=== PATIENT | female | born 1995 | race Caucasian/White ===

== ENCOUNTER → 2020-08-06 | Outpatient (CLI) | payer OTHER, SELFPAY ==
[2020-08-06 09:28] VITALS: BMI 32.9
[2020-08-06 18:39] LABS: Amphetamine Urine VISTA NEGATIVE (<1000 ng/mL); Barbiturate Urine VISTA NEGATIVE (< 200 ng/mL); Benzodiazepine Urine VISTA NEGATIVE (< 200 ng/mL); Cocaine Urine VISTA NEGATIVE (< 300 ng/mL); Ecstacy Urine VISTA NEGATIVE (< 500 ng/mL); Methadone Urine VISTA NEGATIVE (< 300 ng/mL); PCP Urine VISTA NEGATIVE (< 25 ng/mL); THC Urine VISTA NEGATIVE (< 50 ng/mL); Vista UDS pH Range 5
[2020-08-08 20:08] LABS: Chlamydia By Nucleic Acid AMP Negative (Negative)
[2020-08-08 21:01] LABS: Gonococcus By Nucleic Acid AMP Negative (Negative)
== END | disposition home or self-care (01) ==
PROVIDERS: PCP Nurse Practitioner Primary Care; Referring Provider Obstetrics & Gynecology; Visit Provider Obstetrics & Gynecology
DX: Z34.90 Encounter for supervision of normal pregnancy, unspecified, unspecified trimester (principal); Z12.4 Encounter for screening for malignant neoplasm of cervix
CPT/HCPCS: 80307; 87086; 87088; 87491; 87591

== ENCOUNTER → 2020-08-17 13:21 | Outpatient (CLI) | payer OTHER, SELFPAY ==
[2020-08-06 09:28] VITALS: BMI 32.9
[2020-08-17 14:52] LABS: Absolute Lymphocyte Count 2.85 X10^3/uL (0.83-4.51); Absolute Neutrophil Count 7.4 X10^3/uL (2.0-7.7); Basophil# 0.03 X10^3/uL; Basophil% 0.3 % (0-1); Eosinophils% 0.9 % (0-5); Hematocrit 40.4 % (37-47); Hemoglobin 13.7 g/dL (12.0-15.0); Lymphocyte # 2.85 X10^3/ul (0.83-4.51); Mean Corp Hgb Conc 33.9 g/dL (32-36); Mean Corpuscular Hgb 28.9 pg (27.0-32.0); Mean Corpuscular Volume 85.2 fL (81-99); Mean Platelet Vol. 10.4 fl (6.2-12.0); Monocyte# 0.51 X10^3/uL; Monocyte% 4.7 % (0-10); NRBC Flagged by Analyzer 0 % (0-5); Neutrophil # 7.42 X10^3/uL (2.7-7.7); Neutrophil % 67.7 % (47-70); Platelet Count 261 K/mm3 (150-450); RBC Distribution Width CV 11.9 % (11.6-14.6); RBC Distribution Width SD 36.7 fl (35.1-43.9); Red Blood Count 4.74 M/mm3 (4.2-5.4)
[2020-08-17 15:17] LABS: Glucose Challenge Gest 1H 50g 128 mg/dL (70-140)
[2020-08-21 10:27] LABS: HIV - WCH Non-Reactive (Nonreactive); Hepatitis B Surface Antigen Non-Reactive (Nonreactive); Hepatitis C Antibody Non-Reactive (Nonreactive); Rubella IgG Reactive (Nonreactive); Syphilis Antibodies Non-reactive
== END ==
PROVIDERS: Obstetrics & Gynecology; PCP Nurse Practitioner Primary Care; Referring Provider Obstetrics & Gynecology; Visit Provider Obstetrics & Gynecology
DX: Z34.90 Encounter for supervision of normal pregnancy, unspecified, unspecified trimester (principal)
CPT/HCPCS: 36415; 82950; 85025; 86703; 86762; 86780; 86803; 86850; 86900; 86901; 87340

== ENCOUNTER → 2020-12-11 09:14 | Outpatient (CLI) | payer OTHER, SELFPAY ==
[2020-12-11 09:37] LABS: Absolute Lymphocyte Count 2.11 X10^3/uL (0.83-4.51); Absolute Neutrophil Count 9.7 X10^3/uL (2.0-7.7); Basophil# 0.05 X10^3/uL; Basophil% 0.4 % (0-1); Eosinophil# 0.06 X10^3/uL; Eosinophils% 0.5 % (0-5); Hematocrit 37.3 % (37-47); Hemoglobin 12.5 g/dL (12.0-15.0); Lymphocyte # 2.11 X10^3/ul (0.83-4.51); Lymphocyte % 16.6 % (19-41); Mean Corp Hgb Conc 33.5 g/dL (32-36); Mean Corpuscular Hgb 29.4 pg (27.0-32.0); Mean Corpuscular Volume 87.8 fL (81-99); Mean Platelet Vol. 10.3 fl (6.2-12.0); Monocyte# 0.58 X10^3/uL; Monocyte% 4.6 % (0-10); NRBC Flagged by Analyzer 0 % (0-5); Neutrophil # 9.71 X10^3/uL (2.7-7.7); Neutrophil % 76.1 % (47-70); Platelet Count 223 K/mm3 (150-450); RBC Distribution Width CV 13.1 % (11.6-14.6); RBC Distribution Width SD 41.1 fl (35.1-43.9); Red Blood Count 4.25 M/mm3 (4.2-5.4); White Blood Count 12.7 K/mm3 (4.4-11.0)
[2020-12-11 09:54] LABS: Glucose Challenge Gest 1H 50g 154 mg/dL (70-140)
== END ==
PROVIDERS: PCP Nurse Practitioner Primary Care; Referring Provider Obstetrics & Gynecology; Visit Provider Obstetrics & Gynecology
DX: O10.919 Unspecified pre-existing hypertension complicating pregnancy, unspecified trimester (principal); Z13.1 Encounter for screening for diabetes mellitus; Z3A.00 Weeks of gestation of pregnancy not specified
CPT/HCPCS: 36415; 82950; 85025

== ENCOUNTER → 2020-12-20 06:40 | Outpatient (CLI) | payer OTHER, SELFPAY ==
[2020-12-20 07:41] LABS: Glucose GTT-Gestation. Fasting 95 mg/dL (<105)
[2020-12-20 08:36] LABS: Glucose GTT-Gestational 1 Hr 197 mg/dL (<190)
[2020-12-20 09:46] LABS: Glucose GTT-Gestational 2 Hr 167 mg/dL (<165)
[2020-12-20 10:46] LABS: Glucose GTT-Gestational 3 Hr 65 L (<145)
== END ==
PROVIDERS: PCP Nurse Practitioner Primary Care; Referring Provider Nurse Practitioner Women's Health; Visit Provider Nurse Practitioner Women's Health
DX: Z13.1 Encounter for screening for diabetes mellitus (principal)
CPT/HCPCS: 36415; 82951; 82952

== ENCOUNTER 2021-01-14 10:00 | Outpatient (RCR) | payer OTHER, SELFPAY | END 2021-01-20 23:59 | LOC: DC 10:00 | PROVIDERS: PCP Nurse Practitioner Primary Care; Visit Provider Nurse Practitioner Women's Health | DX: O24.410 Gestational diabetes mellitus in pregnancy, diet controlled (principal); Z3A.00 Weeks of gestation of pregnancy not specified | CPT/HCPCS: 97802 ==

== ENCOUNTER 2021-01-20 22:05 | Outpatient (CLI) | payer OTHER, SELFPAY ==
[2021-01-20 22:12] VITALS: BMI 36.1
[2021-01-20 22:18] VITALS: PULSE 79; O2SAT 97
[2021-01-20 22:20] VITALS: BP 155/89; PULSE 90; TEMP 36.8; O2SAT 97
[2021-01-20 23:01] VITALS: BP 135/88; PULSE 82
--- NOTE | 2021-01-23 05:54 | OB.TRI.PN ---
Progress Notes Date of Service: 01/20/21 Progress Note: Patient presents for triage evaluation secondary to dec fm FHT: 140 Moderate variability reactive no decelerations category I tracing [place]: no reuglar Contractions Assessment and plan: Reactive NST, reassuring maternal and status patient discharged to home to follow-up as scheduled. See problem list details for additional plan information. Charges/Coding Procedures Urinary/Genital 52xxx-59xxx: 84101-37 non-stress test Interp Assessment & Plan (1) Decreased movements in third trimester: COMMENT: reactive nst triage 01/20
== END 2021-01-20 23:17 | disposition home or self-care (01) ==
LOC: WPOUT 22:06 → WP 22:07
PROVIDERS: PCP Nurse Practitioner Primary Care; Visit Provider Obstetrics & Gynecology
DX: O36.8130 Decreased fetal movements, third trimester, not applicable or unspecified (principal); Z3A.00 Weeks of gestation of pregnancy not specified
CPT/HCPCS: 59025; 59050; 99218; G0378

== ENCOUNTER → 2021-02-11 12:25 | Outpatient (CLI) | payer OTHER, SELFPAY ==
--- NOTE | 2021-02-11 12:34 | US_ITS ---
INDICATION: growth EXAMINATION: Ultrasound US OB Follow-Up TECHNIQUE: Transabdominal pelvic ultrasound was performed. COMPARISON: None. LMP: Unknown. Beta-hCG: Unknown. Provided EGA: None. FINDINGS: INTRAUTERINE GESTATION(s): Single. ESTIMATED GESTATIONAL AGE: 34 weeks 3 days ESTIMATED DUE DATE (ESAU): 03/22/2021 HEART MOTION is 127 bpm. AMNIOTIC FLUID INDEX (RENNY): 16.98 cm ESTIMATED WEIGHT: 2774 +/- 4 116 g Percentile 52.59%. BIOPHYSICAL PROFILE (BPP): Not assessed. BPD 8.43 cm corresponds to 33 weeks 6 days +/- 21 days HEAD CIRCUMFERENCE 30.7 cm corresponds to 34 weeks 1 day +/- 20 days ABDOMINAL CIRCUMFERENCE 32.6 cm corresponds to 36 weeks 3 days +/- 21 days FEMUR LENGTH 6.8 cm corresponds to 35 weeks 0 days +/- 20 days PRESENTATION: Cephalic PLACENTA: Fundal. There is no placenta previa or abruption. CERVIX: The cervix is closed. Cervical length 3.9 cm. MATERNAL OVARIES: Not visualized but mass is not identified. FREE FLUID: None. US/OB Limited With Biometrics IMPRESSION: Single live intrauterine gestation in cephalic presentation with composite gestational age 34 weeks 3 days compares to clinical dates by last menstrual period 35 weeks 5 days. Estimated weight 6 lbs. 2 oz. corresponding to 53 percentile. Electronically Signed: Jabier Gonzalez MD at 17:05 EST Tel , Service support ,
== END ==
PROVIDERS: PCP Nurse Practitioner Primary Care; Referring Provider Obstetrics & Gynecology; Visit Provider Obstetrics & Gynecology
DX: O24.410 Gestational diabetes mellitus in pregnancy, diet controlled (principal); Z3A.35 35 weeks gestation of pregnancy
CPT/HCPCS: 76816

== ENCOUNTER → 2021-02-15 | Outpatient (CLI) | payer OTHER, SELFPAY | END | disposition home or self-care (01) | LOC: LABSPEC 12:59 | PROVIDERS: PCP Nurse Practitioner Primary Care; Visit Provider Obstetrics & Gynecology | DX: Z34.93 Encounter for supervision of normal pregnancy, unspecified, third trimester (principal); Z3A.36 36 weeks gestation of pregnancy | CPT/HCPCS: 87081 ==

== ENCOUNTER 2021-02-23 18:05 | Outpatient (CLI) | payer OTHER, SELFPAY ==
[2021-02-23] VITALS (8 sets, daily range): BP systolic 130–138; BP diastolic 84–94; PULSE 77–105; TEMP 36.5; BMI 32.5
[2021-02-23 20:04] LABS: Hematocrit 38.4 % (37-47); Hemoglobin 13.1 g/dL (12.0-15.0); Mean Corp Hgb Conc 34.1 g/dL (32-36); Mean Corpuscular Hgb 29.8 pg (27.0-32.0); Mean Corpuscular Volume 87.3 fL (81-99); Mean Platelet Vol. 11.1 fl (6.2-12.0); Platelet Count 211 K/mm3 (150-450); RBC Distribution Width CV 13.1 % (11.6-14.6); RBC Distribution Width SD 41.1 fl (35.1-43.9); White Blood Count 12.6 K/mm3 (4.4-11.0)
[2021-02-23 20:15] LABS: Protein, Urine (Random) 11.4 mg/dL (<11.9); Protein:Creat Ratio 170 mg/g CRE (0-200)
[2021-02-23 20:21] LABS: AST(SGOT) 12 U/L (15-37); Alanine Aminotransfer ALT/SGPT 21 U/L (13-56); Creatinine, Serum 0.62 mg/dL (0.55-1.02); EST Glomerular Filtration Rate 123 mL/min (>60); Est Glom Filt Rate - Afr Amer 149 mL/min (>60); Uric Acid 2.8 mg/dL (2.6-6.0)
--- NOTE | 2021-02-23 21:19 | OB.TRI.HP_ITS ---
HPI - General HPI Narrative NINOSKA CERVANTES, is a 25 F who presents Maternal Data Information ESAU Calculator Estimated Delivery Date Method Current WG Current Estimate 03/13/21 LMP (Certain) 37w 3d Other Estimates 03/15/21 Ultrasound #1 37w 1d PFSH PFSH Medical History Abnormal glucose affecting Home Medications vitamin #56-iron 35 mg and 5 mg-folic acid 1 mg-dha capsule 1 cap PO DAILY 08/06/20 [History Last Taken 02/23/21 06:00] acetaminophen 325 mg tablet 325 mg PO ONCE PRN 09/03/20 [History Last Taken 01/07/21 08:00] blood sugar diagnostic #100 ea 12/23/20 [Rx Last Taken Unknown] blood-glucose meter #1 ea 12/23/20 [Rx Last Taken Unknown] blood sugar diagnostic #50 ea 12/24/20 [Rx Last Taken Unknown] blood-glucose meter #1 ea 12/24/20 [Rx Last Taken Unknown] Allergy/AdvReac Type Severity Reaction Status Date / Time No Known Allergies Allergy Verified 02/23/21 18:37 Family History Father Hypertension Surgical History History of appendectomy History of cholecystectomy Social History adopted: No household members: spouse number of children: 0 current occupational status: employed 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 occupational exposures/hazards: No pets and animals: No additional social history: Spouse- Satinder History 1 Elective abortions Hx Para 0 Spontaneous abortions Hx # Term Pregnancies Ectopic pregnancies Hx # Pregnancies Multiple births # of living children Visit Details Expected Delivery Route/Plan Labor Preferences- CB/BF classes: yes labor support person: Satinder labor intervention preferences: pain management options preferred: epidural cut cord/dad catch: maybe : yes PP control planned: discussed discussed possible routes of delivery and associated risks: [] special requests: [] Plans covid: vaccinated flu vaccine: given tdap vaccine: given rhogam: na LARC form signed: yes movement and labor precautions reviewed. Problem list reviewed and updated with the most current plan of care details and appropriate orders placed. Relevant counseling for the gestational age provided. Continue routine care and follow up unless otherwise noted in visit notes/problem list details OB Flowsheet Initial Weight: 190 lb Date -?-?-?-?-?-?-?-?-?-?-?-?- EGA Weight BP Urine Prot -?-?-?-?-?-?-?-?-?-?-?-?- Glucose FHR FuHt Pres Dilation -?-?-?-?-?-?-?-?-?-?-?-?- Effaced St Visit Note 08/06/20 -?-?-?-?-?-?-?-?-?-?-?-?- 8w 5d 192 lb (+2 lb) 102/82 -?-?-?-?-?-?-?-?-?-?-?-?- 170 -?-?-?-?-?-?-?-?-?-?-?-?- SM- CRL cons wit h LMP 09/03/20 -?-?-?-?-?-?-?-?-?-?-?-?- 12w 5d 190 lb 2 oz (+2 oz) 112/78 Negative -?-?-?-?-?-?-?-?-?-?-?-?- Negative 170 -?-?-?-?-?-?-?-?-?-?-?-?- SM- no vb crampi christelle, reviewed labs. 10/01/20 -?-?-?-?-?-?-?-?-?-?-?-?- 16w 5d 190 lb (+0 oz) 118/82 Negative -?-?-?-?-?-?-?-?-?-?--?-?- Negative 155 -?-?-?-?-?-?-?-?-?-?-?-?- GP - no cramping or bleeding. Anatomy scheduled. Discussed appropriate weight gain. 10/23/20 -?-?-?-?-?-?-?-?-?-?-?-?- 19w 6d 192 lb 8 oz (+2 lb 8 oz) 138/72 Negative -?-?-?-?-?-?-?-?-?-?-?-?- Negative 142 0 -?-?-?-?-?-?-?-?-?-?--?-?- -work in:sm am t blood on tissue X 1. No recent IC. No further bleeding. Cx LCT. Mucoid dc only, no blood. Reassured. Anatomy US in 2 days. 10/29/20 -?-?-?-?--?-?-?-?-?-?-?-?- 20w 5d 193 lb 8 oz (+3 lb 8 oz) 130/76 Negative -?-?-?-?-?-?-?-?-?-?-?-?- Negative 155 -?-?-?-?-?-?-?-?-?-?-?-?- GP - no cramping or bleeding. +FM. Reviewed anatomy - limited views. Has f/u scheduled 11/29/20 -?-?-?-?-?-?-?-?-?-?-?-?- 25w 1d 192 lb (+2 lb) 135/83 -?-?-?-?-?-?-?-?-?-?-?-?- 150 -?-?-?-?-?-?-?-?-?-?-?-?- - discussed ca rpal tunnel symptoms, no vb lof good fm no regular ctx 12/12/20 -?-?-?-?-?-?-?-?-?-?-?-?- 27w 0d 194 lb (+4 lb) 130/78 Negative -?-?-?-?-?-?-?-?-?-?-?-?- Negative 161 28 -?-?-?-?-?-?-?-?-?-?-?-?- -No VB, LOF, G ood FM. 28 wk labs done-3 hr GTT is scheduled. Tdap, flu and larc done. 12/24/20 -?-?-?-?-?-?-?-?-?-?-?-?- 28w 5d 193 lb (+3 lb) 112/80 -?-?-?-?-?-?-?-?-?-?-?-?- 150 29 -?-?-?-?-?-?-?-?-?-?-?-?- SM- discussed GD M diagnosis. ordered supplies and consults 01/10/21 -?-?-?-?-?-?-?-?-?-?-?-?- 31w 1d 191 lb (+16 oz) 120/82 Negative -?-?-?-?-?-?-?-?-?-?-?-?- Negative 150 31 -?-?-?-?-?-?-?-?-?-?-?-?- SM- no vb lof go od fm no regular ctx 01/23/21 -?-?-?-?-?-?-?-?-?-?-?-?- 33w 0d 192 lb (+2 lb) 122/80 Negative -?-?-?-?-?-?-?-?-?-?-?-?- Negative 145 33 -?-?-?-?-?-?-?-?-?-?-?-?- SM- no vb lof go od fm no reuglar ctx 02/04/21 -?-?-?-?-?-?-?--?-?-?-?-?- 34w 5d 196 lb 8 oz (+6 lb 8 oz) 130/88 Negative -?-?-?-?-?-?-?-?-?-?-?-?- Negative 140 35 -?-?-?-?-?-?-?-?-?-?-?-?- SM- no vb lof go od fm nor egular ctx 02/15/21 -?-?-?-?-?-?-?-?-?-?-?-?- 36w 2d 192 lb (+2 lb) 122/84 Negative -?-?-?-?-?-?-?-?--?-?-?-?- Negative 140 35 -?-?-?-?-?-?-?-?-?-?-?-?- SM- no vb lof go od fm no regular ctx gbs done 02/20/21 -?-?-?-?-?-?-?-?-?-?-?-?- 37w 0d 191 lb 2 oz (+1 lb 2 oz) 130/90 Negative -?-?-?-?-?-?-?-?-?-?-?-?- Negative 146 Cephalic -?-?-?-?-?-?-?-?-?-?-?-?- JV-glucose can l. planning for 39 week IOL (thursday pm on 03/06/2021) 02/23/21 -?-?-?-?-?-?-?-?-?-?-?-?- 37w 3d 190 lb (+0 oz) 130/93 135/91 131/93 138/94 131/93 133/91 131/84 -?-?-?-?-?-?-?-?-?-?-?-?- -?-?-?-?-?-?-?-?-?-?-?-?- ROS Constitutional Constitutional: Reports systems reviewed and no addt'l complaints, except as documented Gastrointestinal Gastrointestinal: Denies bloating, constipation, cramping, diarrhea, nausea or vomiting Genitourinary Genitourinary: Reports other Details: Denies vaginal odor, vaginal bleeding, or vaginal discharge ; Denies difficulty urinating or flank pain Physical Exam HEENT normocephalic Resp normal respiratory effort and normal air movement no CVA tenderness Narrative: BPP performed at bedside: RENNY: 11 Gross body movement: present Flexion/extension: present Breathing: present NST: reactive BPP score 10/10 Extremity normal to inspection General Extremity: edema bilateral (trace ) NST FHR Rate Baby A Baseline: 140 Variability:: Moderate Accelerations:: 15 x 15 Decelerations:: None NST Reactive:: Yes FHR Category:: Category I Assessment & Plan (1) Gestational diabetes, diet controlled: QUALIFIERS: Trimester: third trimester Qualified Code(s): O24.410 - Gestational diabetes mellitus in , diet controlled COMMENT: endocrine and nutrition consult. growth us at 36 nl,and deliver by 39- 40. IOL set up for 03/06 7am (2) Supervision of normal first : QUALIFIERS: Trimester: second trimester Qualified Code(s): Z34.02 - Encounter for supervision of normal first , second trimester COMMENT: PRR Jaylon Boy EDD105/14/20 Spouse: Satinder (3) : QUALIFIERS: Weeks of gestation: 37 weeks Qualified Code(s): Z3A.37 - 37 weeks gestation of COMMENT: GBS neg., genetic, carrier, and NTD screening declined. Anatomy normal, (4) Decreased movement: PLAN: bpp was 10/10- pt reassured mild elevation in bp, however looking back on levels in office this looks to be her baseline. PIH labs normal. will follow closely in the office for pih or pre- e symptoms plan for IOL at 39 weeks for GDM Charges/Coding Multi Select Codes Visit Charges Office Visit/Consults: 29318 OV L3 Est Urinary/Genital Urinary/Genital CPT Codes: 26014-65 non-stress test Interp
--- NOTE | 2021-02-23 21:19 | OB.TRI.NOTE ---
HPI - General HPI Narrative NINOSKA CERVANTES, is a 25 F who presents Maternal Data Information ESAU Calculator Estimated Delivery Date Method Current WG Current Estimate 03/13/21 LMP (Certain) 37w 3d Other Estimates 03/15/21 Ultrasound #1 37w 1d PFSH PFSH Medical History Abnormal glucose affecting Home Medications vitamin #56-iron 35 mg and 5 mg-folic acid 1 mg-dha capsule 1 cap PO DAILY 08/06/20 [History Last Taken 02/23/21 06:00] acetaminophen 325 mg tablet 325 mg PO ONCE PRN 09/03/20 [History Last Taken 01/07/21 08:00] blood sugar diagnostic #100 ea 12/23/20 [Rx Last Taken Unknown] blood-glucose meter #1 ea 12/23/20 [Rx Last Taken Unknown] blood sugar diagnostic #50 ea 12/24/20 [Rx Last Taken Unknown] blood-glucose meter #1 ea 12/24/20 [Rx Last Taken Unknown] Allergy/AdvReac Type Severity Reaction Status Date / Time No Known Allergies Allergy Verified 02/23/21 18:37 Family History Father Hypertension Surgical History History of appendectomy History of cholecystectomy Social History adopted: No household members: spouse number of children: 0 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: No pets and animals: No additional social history: Spouse- Satinder History 1 Elective abortions Hx Para 0 Spontaneous abortions Hx # Term Pregnancies Ectopic pregnancies Hx # Pregnancies Multiple births # of living children Visit Details Expected Delivery Route/Plan Labor Preferences- CB/BF classes: yes labor support person: Satinder labor intervention preferences: pain management options preferred: epidural cut cord/dad catch: maybe : yes PP control planned: discussed discussed possible routes of delivery and associated risks: [] special requests: [] Plans covid: vaccinated flu vaccine: given tdap vaccine: given rhogam: na LARC form signed: yes movement and labor precautions reviewed. Problem list reviewed and updated with the most current plan of care details and appropriate orders placed. Relevant counseling for the gestational age provided. Continue routine care and follow up unless otherwise noted in visit notes/problem list details OB Flowsheet Initial Weight: 190 lb Date <del>?</del> EGA Weight BP Urine Prot <del>?</del> Glucose FHR FuHt Pres Dilation <del>?</del> Effaced St Visit Note 08/06/20 <del>?</del> 8w 5d 192 lb (+2 lb) 102/82 <del>?</del> 170 <del>?</del> SM- CRL cons with LMP 09/03/20 <del>?</del> 12w 5d 190 lb 2 oz (+2 oz) 112/78 Negative <del>?</del> Negative 170 <del>?</del> SM- no vb cramping, reviewed labs. 10/01/20 <del>?</del> 16w 5d 190 lb (+0 oz) 118/82 Negative <del>?</del> Negative 155 <del>?</del> GP - no cramping or bleeding. Anatomy scheduled. Discussed appropriate weight gain. 10/23/20 <del>?</del> 19w 6d 192 lb 8 oz (+2 lb 8 oz) 138/72 Negative <del>?</del> Negative 142 0 <del>?</del> -work in:sm amt blood on tissue X 1. No recent IC. No further bleeding. Cx LCT. Mucoid dc only, no blood. Reassured. Anatomy US in 2 days. 10/29/20 <del>?</del> 20w 5d 193 lb 8 oz (+3 lb 8 oz) 130/76 Negative <del>?</del> Negative 155 <del>?</del> GP - no cramping or bleeding. +FM. Reviewed anatomy - limited views. Has f/u scheduled 11/29/20 <del>?</del> 25w 1d 192 lb (+2 lb) 135/83 <del>?</del> 150 <del>?</del> SM- discussed carpal tunnel symptoms, no vb lof good fm no regular ctx 12/12/20 <del>?</del> 27w 0d 194 lb (+4 lb) 130/78 Negative <del>?</del> Negative 161 28 <del>?</del> -No VB, LOF, Good FM. 28 wk labs done-3 hr GTT is scheduled. Tdap, flu and larc done. 12/24/20 <del>?</del> 28w 5d 193 lb (+3 lb) 112/80 <del>?</del> 150 29 <del>?</del> SM- discussed GDM diagnosis. ordered supplies and consults 01/10/21 <del>?</del> 31w 1d 191 lb (+16 oz) 120/82 Negative <del>?</del> Negative 150 31 <del>?</del> SM- no vb lof good fm no regular ctx 01/23/21 <del>?</del> 33w 0d 192 lb (+2 lb) 122/80 Negative <del>?</del> Negative 145 33 <del>?</del> SM- no vb lof good fm no reuglar ctx 02/04/21 <del>?</del> 34w 5d 196 lb 8 oz (+6 lb 8 oz) 130/88 Negative <del>?</del> Negative 140 35 <del>?</del> SM- no vb lof good fm nor egular ctx 02/15/21 <del>?</del> 36w 2d 192 lb (+2 lb) 122/84 Negative <del>?</del> Negative 140 35 <del>?</del> SM- no vb lof good fm no regular ctx gbs done 02/20/21 <del>?</del> 37w 0d 191 lb 2 oz (+1 lb 2 oz) 130/90 Negative <del>?</del> Negative 146 Cephalic <del>?</del> JV-glucose normal. planning for 39 week IOL (thursday pm on 03/06/2021) 02/23/21 <del>?</del> 37w 3d 190 lb (+0 oz) 130/93 135/91 131/93 138/94 131/93 133/91 131/84 <del>?</del> <del>?</del> ROS Constitutional Constitutional: Reports systems reviewed and no addt'l complaints, except as documented Gastrointestinal Gastrointestinal: Denies bloating, constipation, cramping, diarrhea, nausea or vomiting Genitourinary Genitourinary: Reports other Details: Denies vaginal odor, vaginal bleeding, or vaginal discharge ; Denies difficulty urinating or flank pain Physical Exam HEENT normocephalic Resp normal respiratory effort and normal air movement no CVA tenderness Narrative: BPP performed at bedside: RENNY: 11 Gross body movement: present Flexion/extension: present Breathing: present NST: reactive BPP score 10/10 Extremity normal to inspection General Extremity: edema bilateral (trace ) NST FHR Rate Baby A Baseline: 140 Variability:: Moderate Accelerations:: 15 x 15 Decelerations:: None NST Reactive:: Yes FHR Category:: Category I Assessment & Plan (1) Gestational diabetes, diet controlled: QUALIFIERS: Trimester: third trimester Qualified Code(s): O24.410 - Gestational diabetes mellitus in , diet controlled COMMENT: endocrine and nutrition consult. growth us at 36 nl,and deliver by 39- 40. IOL set up for 03/06 7am (2) Supervision of normal first : QUALIFIERS: Trimester: second trimester Qualified Code(s): Z34.02 - Encounter for supervision of normal first , second trimester COMMENT: PRR Jaylon Boy EDD1/ Spouse: Satinder (3) : QUALIFIERS: Weeks of gestation: 37 weeks Qualified Code(s): Z3A.37 - 37 weeks gestation of COMMENT: GBS neg., genetic, carrier, and NTD screening declined. Anatomy normal, (4) Decreased movement: PLAN: bpp was 10/10- pt reassured mild elevation in bp, however looking back on levels in office this looks to be her baseline. PIH labs normal. will follow closely in the office for pih or pre-e symptoms plan for IOL at 39 weeks for GDM Charges/Coding Multi Select Codes Visit Charges Office Visit/Consults: 79398 OV L3 Est Urinary/Genital Urinary/Genital CPT Codes: 58942-62 non-stress test Interp
== END 2021-02-23 21:23 | disposition home or self-care (01) ==
LOC: WPOUT 18:14 → WP 18:15
PROVIDERS: PCP Nurse Practitioner Primary Care; Visit Provider Obstetrics & Gynecology
DX: O24.410 Gestational diabetes mellitus in pregnancy, diet controlled (principal); O36.8130 Decreased fetal movements, third trimester, not applicable or unspecified; R03.0 Elevated blood-pressure reading, without diagnosis of hypertension; Z3A.37 37 weeks gestation of pregnancy
CPT/HCPCS: 36415; 59025; 59050; 76815; 82565; 82570; 84156; 84450; 84460; 84550; 85027; 99218; G0378

== ENCOUNTER 2021-03-01 11:55 | Inpatient (IN) | payer OTHER, SELFPAY ==
[2021-03-01] VITALS (28 sets, daily range): BP systolic 111–147; BP diastolic 65–93; PULSE 85–141; TEMP 36.4–37.2; O2SAT 92–100; BMI 32.5
[2021-03-01] MEDS: Lactated Ringers 1,000 ML 50 ML IV (15:35)
[2021-03-01] MEDS: Oxytocin 30 units/NS 500 ml 30 UNITS/500 ML IV.SOLN IV (15:49)
[2021-03-01 15:56] LABS: Absolute Lymphocyte Count 2.52 X10^3/uL (0.83-4.51); Absolute Neutrophil Count 9.3 X10^3/uL (2.0-7.7); Basophil# 0.02 X10^3/uL; Basophil% 0.2 % (0-1); Eosinophil# 0.04 X10^3/uL; Eosinophils% 0.3 % (0-5); Hematocrit 38.1 % (37-47); Hemoglobin 13.1 g/dL (12.0-15.0); Lymphocyte # 2.52 X10^3/ul (0.83-4.51); Mean Corp Hgb Conc 34.4 g/dL (32-36); Mean Corpuscular Hgb 29.8 pg (27.0-32.0); Mean Corpuscular Volume 86.6 fL (81-99); Mean Platelet Vol. 11.5 fl (6.2-12.0); Monocyte# 0.62 X10^3/uL; Monocyte% 4.9 % (0-10); NRBC Flagged by Analyzer 0 % (0-5); Neutrophil % 73.9 % (47-70); Platelet Count 205 K/mm3 (150-450); RBC Distribution Width CV 13.1 % (11.6-14.6); White Blood Count 12.6 K/mm3 (4.4-11.0)
[2021-03-01] MEDS: 0.9% Normal Saline Single 100 ML IV.SOLN. INTRA-UTER (17:02)
[2021-03-01 17:16] LABS: Bedside Glucose 81 mg/dL (70-110)
--- NOTE | 2021-03-01 18:22 | PCM.HP.BLA ---
History and Physical Date of Admission: 03/01/21 Vital Signs 03/01/21 09:35 Height 5 ft 4 in Weight: 192 lb BMI 32.9 BP 128/82 H Intake Visit Reasons: 39 WK OB Therapist'S Assistant Required: No Is patient in pain?: No Allergies No Known Allergies Allergy (Verified 03/01/21 09:35) Medications vitamin #56-iron 35 mg and 5 mg-folic acid 1 mg-dha capsule 1 cap PO DAILY 08/06/20 [History Confirmed 03/01/21] acetaminophen 325 mg tablet 325 mg PO ONCE PRN 09/03/20 [History Confirmed 03/01/21] blood sugar diagnostic #100 ea 12/23/20 [Rx Confirmed 03/01/21] blood-glucose meter #1 ea 12/23/20 [Rx Confirmed 03/01/21] blood sugar diagnostic #50 ea 12/24/20 [Rx Confirmed 03/01/21] blood-glucose meter #1 ea 12/24/20 [Rx Confirmed 03/01/21] Last Menstral Period: 06/06/20 Zika: Zika virus screening: Negative : No PFSH PFSH Medical History Abnormal glucose affecting Surgical History History of appendectomy History of cholecystectomy Family History Father Hypertension Social History adopted: No household members: spouse number of children: 0 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 OB Visit ESAU Calculator Estimated Delivery Date Method Current WG Current Estimate 03/13/21 LMP (Certain) 38w 2d Other Estimates 03/15/21 Ultrasound #1 38w 0d Expected Delivery Route/Plan Labor Preferences- CB/BF classes: yes labor support person: Satinder labor intervention preferences: pain management options preferred: epidural cut cord/dad catch: maybe : yes PP control planned: discussed discussed possible routes of delivery and associated risks: [] special requests: [] Specific Issue/Plans covid: vaccinated flu vaccine: given tdap vaccine: given rhogam: na LARC form signed: yes movement and labor precautions reviewed. Problem list reviewed and updated with the most current plan of care details and appropriate orders placed. Relevant counseling for the gestational age provided. Continue routine care and follow up unless otherwise noted in visit notes/problem list details Initial Weight: 190 lb Date EGA Weight BP Urine Prot Glucose FHR FuHt Pres Dilation Effaced St Visit Note 08/06/20 8w 5d 192 lb (+2 lb) 102/82 170 SM- CRL cons with LMP 09/03/20 12w 5d 190 lb 2 oz (+2 oz) 112/78 Negative Negative 170 SM- no vb cramping, reviewed labs. 10/01/20 16w 5d 190 lb (+0 oz) 118/82 Negative Negative 155 GP - no cramping or bleeding. Anatomy scheduled. Discussed appropriate weight gain. 10/23/20 19w 6d 192 lb 8 oz (+2 lb 8 oz) 138/72 Negative Negative 142 0 MH-work in:sm amt blood on tissue X 1. No recent IC. No further bleeding. Cx LCT. Mucoid dc only, no blood. Reassured. Anatomy US in 2 days. 10/29/20 20w 5d 193 lb 8 oz (+3 lb 8 oz) 130/76 Negative Negative 155 GP - no cramping or bleeding. +FM. Reviewed anatomy - limited views. Has f/u scheduled 11/29/20 25w 1d 192 lb (+2 lb) 135/83 150 SM- discussed carpal tunnel symptoms, no vb lof good fm no regular ctx 12/12/20 27w 0d 194 lb (+4 lb) 130/78 Negative Negative 161 28 MH-No VB, LOF, Good FM. 28 wk labs done-3 hr GTT is scheduled. Tdap, flu and larc done. 12/24/20 28w 5d 193 lb (+3 lb) 112/80 150 29 SM- discussed GDM diagnosis. ordered supplies and consults 01/10/21 31w 1d 191 lb (+16 oz) 120/82 Negative Negative 150 31 SM- no vb lof good fm no regular ctx 01/23/21 33w 0d 192 lb (+2 lb) 122/80 Negative Negative 145 33 SM- no vb lof good fm no reuglar ctx 02/04/21 34w 5d 196 lb 8 oz (+6 lb 8 oz) 130/88 Negative Negative 140 35 SM- no vb lof good fm nor egular ctx 02/15/21 36w 2d 192 lb (+2 lb) 122/84 Negative Negative 140 35 SM- no vb lof good fm no regular ctx gbs done 02/20/21 37w 0d 191 lb 2 oz (+1 lb 2 oz) 130/90 Negative Negative 146 Cephalic JV-glucose normal. planning for 39 week IOL (thursday pm on 03/06/2021) 02/23/21 37w 3d 190 lb (+0 oz) 130/93 135/91 131/93 138/94 131/93 133/91 131/84 03/01/21 38w 2d 192 lb (+2 lb) 128/82 Negative Negative 140 32 Cephalic 1 50 -2 SM- no vb lof decreased fm persistent, irregular ctx. upon eval us shows some movement but decreased fluid emilee 4 cm. recommend IOL ACOG First Trimester First Trimester: Desire for , Alcohol, Tobacco Cessation, Illicit/Recreational Drug/Substance Use, Intimate Partner Violence, Barriers to care, Unstable Housing, Communication Barriers, Environmental/Work Hazards, Anticipated Course of Care, Toxoplasmosis Precations, Use of Any medications, Sexual activity, Exercise, Dental Care, Sauna/Hot tub use, Seat Belt use, Childbirth classes/Hospital facilities, , Travel, Indications for Ultrasound and Screening for Aneuploidy Second Trimester Second Trimester: Signs and Symptoms of Labor, Selecting a care provider, Reproductive Life Planning & Contreception, Care Planning, Depression/Anxiety and Intimate Partner Violence; Discussed Tobacco Cessation Third Trimester Third Trimester: Pain Management Plans, Labor support person(s), Immediate Larc, Circumcision preference, Signs and Symptoms of Preeclampsia and Infant Feeding Yes Diagnostics Diagnostics Diagnostics: Hgb 13.1 g/dL (12.0-15.0) Hct 38.4 % (37-47) Details: HIV: Urine Culture: Sequential Screen: NIPT Screen: ROS Const Reports system reviewed and no additional complaints, except as documented Card Reports system reviewed and no additional complaints, except as documented Resp Reports system reviewed and no additional complaints, except as documented GI Reports system reviewed and no additional complaints, except as documented and Reports nausea Reports system reviewed and no additional complaints, except as documented Musc Reports system reviewed and no additional complaints, except as documented Exam Const General: cooperative, healthy appearing and comfortable HENMT Head: normal to inspection Nose: external nose normal Face and sinus: normal facial exam Neck Neck: normal visual inspection, full ROM and no lymphadenopathy Thyroid: thyroid normal Chest Chest palpation & inspection: normal inspection of the chest Resp Effort & Inspection: normal respiratory effort GI Inspection: normal to inspection Palpation: soft and other (gravid uterus) Other: vertex and appropriate size for gestational age Other: Cervical Exam: Extrem General: pedal edema Results POC Urinalysis 2 Dip (Clinic) Office Urine Glucose Negative Last Edit by Mia Sy on 03/01/21 09:38 Office Urine Protein Negative Last Edit by Mia Sy on 03/01/21 09:38 Coding Level of Care Code OB Routine Diagnoses Decreased movement O36.8190 Gestational diabetes, diet controlled O24.410 Trimester: third trimester Supervision of normal first Z34.02 Trimester: second trimester Z3A.37 Weeks of gestation: 37 weeks Oligohydramnios in third trimester O41.03X0 Assessment and Plan Assessment and Plan (1) Decreased movement: Status: Acute (2) Gestational diabetes, diet controlled: Status: Acute Qualifiers: Trimester: third trimester Qualified Code(s): O24.410 - Gestational diabetes mellitus in , diet controlled Comment: endocrine and nutrition consult. growth us at 36 nl,and deliver by 39- 40. IOL set up for 03/06 7am (3) Supervision of normal first : Status: Acute Qualifiers: Trimester: second trimester Qualified Code(s): Z34.02 - Encounter for supervision of normal first , second trimester Comment: PRR Jaylon Boy EDD105/14/20 Spouse: Satinder (4) : Status: Acute Qualifiers: Weeks of gestation: 37 weeks Qualified Code(s): Z3A.37 - 37 weeks gestation of Comment: GBS neg., genetic, carrier, and NTD screening declined. Anatomy normal, NL PIH labs (5) Oligohydramnios in third trimester: Status: Acute Comment: IOL pit/fb now. epi PRN. gbs neg. bs q 4 hr in latent and 1 hr in active Plan Details Other Orders: Orders: POC Urinalysis 2 Dip (Clinic) Today
[2021-03-01 19:56] LABS: Bedside Glucose 83 mg/dL (70-110)
[2021-03-01] MEDS: Lactated Ringers 500 ML 999 ML IV ×2 (19:59→20:34)
[2021-03-01] MEDS: fentaNYL-bupivacaine (epidural) 100 ML BAG EPIDURAL (21:09)
[2021-03-01 21:40] LABS: Bedside Glucose 82 mg/dL (70-110)
[2021-03-02] VITALS (48 sets, daily range): BP systolic 119–143; BP diastolic 73–95; PULSE 80–159; RESP 14–16; TEMP 36.6–37.4; O2SAT 94–99
[2021-03-02 00:31] LABS: ROM Internal Control Test YES-OK TO RESULT pt. (Internal QC)
[2021-03-02 00:32] LABS: ROM Patient Test POSITIVE (Negative)
[2021-03-02 00:46] LABS: Bedside Glucose 86 mg/dL (70-110)
[2021-03-02] MEDS: Lactated Ringers 1,000 ML 200 ML IV (01:14)
[2021-03-02] MEDS: fentaNYL-bupivacaine (epidural) 100 ML BAG EPIDURAL (01:16)
[2021-03-02 02:21] LABS: Bedside Glucose 91 mg/dL (70-110)
[2021-03-02] MEDS: Oxytocin 30 units/NS 500 ml 30 UNITS/500 ML IV.SOLN 334 UNITS IV (03:34)
--- NOTE | 2021-03-02 03:52 | OP.PCM_ITS ---
Assessment & Plan (1) : QUALIFIERS: Weeks of gestation: 37 weeks Qualified Code(s): Z3A.37 - 37 weeks gestation of COMMENT: GBS neg., genetic, carrier, and NTD screening declined. Anatomy normal, NL PIH labs (2) Supervision of normal first : QUALIFIERS: Trimester: second trimester Qualified Code(s): Z34.02 - Encounter for supervision of normal first , second trimester COMMENT: PRR Jaylon Nagy EDD105/14/20 Spouse: Satinder (3) Gestational diabetes, diet controlled: QUALIFIERS: Trimester: third trimester Qualified Code(s): O24.410 - Gestational diabetes mellitus in , diet controlled COMMENT: endocrine and nutrition consult. growth us at 36 nl,and deliver by 39- 40. IOL set up for 03/06 7am (4) Decreased movement: (5) Oligohydramnios in third trimester: COMMENT: IOL pit/fb now. epi PRN. gbs neg. bs q 4 hr in latent and 1 hr in active (6) Vaginal delivery: COMMENT: IOL oligo [id number] 38 SM amos Iyer Maternal Data Information ESAU Calculator Estimated Delivery Date Method Current WG Current Estimate 03/13/21 LMP (Certain) 38w 3d Other Estimates 03/15/21 Ultrasound #1 38w 1d Vaginal Delivery Operative Information Date of Procedure: 03/02/21 Pre-Operative Diagnosis: iol oligo Post-Operative Diagnosis: same Surgery / Procedure Performed: Spontaneous Vaginal Delivery Type of Anesthesia: Epidural Special Medications: none Estimated Blood Loss: 100 Fluids Replaced: crystalloid Findings Description of Procedure: Patient began pushing and delivered the head in the HENRY presentation. The head was delivered atraumatically and a loose nuchal cord ?1 was identified and the infant delivered through without complication. The anterior and posterior shoulders delivered without complication followed by the rest of the infant and the was placed on the maternal abdomen. Delayed cord clamping was employed for approximately 60 seconds. Cord was clamped and cut and gentle traction was applied to the cord and the placenta delivered spontaneously immediately following it was noted to be intact with three-vessel cord. The perineum and vagina were inspected and noted to have no laceration. EBL was 100 cc. Patient and infant tolerated delivery well. Presentation: HENRY Amniotic Membrane Rupture Type: Spontaneous Amniotic Fluid Description: Clear Placental Delivery Description: Spontaneous Placenta Disposition: [facility] Cord Vessel Description: 3 Vessels Cord Entanglement: Around neck x 1, loose A Gender: Male Delayed Cord Clamping: Yes Post Vaginal Delivery Medications Given After Delivery: IV Pitocin Episiotomy Description: None Laceration: None Complication Complications: None Procedures Urinary/Genital 52xxx-59xxx: 28795 Vaginal Delivery [facility]
--- NOTE | 2021-03-02 03:54 | DCINST_ITS ---
Discharge Instructions Diet Discharge Diet: No restrictions Activity Discharge Activity: Return to Normal Activity, May Not Drive (while taking narcotic pain medications.) and May Shower May resume sexual activity in: 4-6 weeks Weight Bearing Status: Full weight bearing Dressing / Incision Call your doctor if your incision/area has: Continuous Slow Oozing, Sudden Increased Bleeding, Increased Pain/ Swelling, Increased Redness and Foul Smelling Discharge Call your doctor if you observe: Fever of 101 or Higher, Using more than 1 pad per hour, Shortness of breath, Chest pain and Uncontrolled pain Suture Line Care: Avoid Pulling/Pushing and Avoid Pinching/Bending Remove Dressing in: 1 week (if present) Cleanse incision/area with: Soap & Water and Keep Dressing Clean & Dry Follow Up Care Please Follow Up With: Araceli Munoz MD When: Call [phone] to make an appointment with your doctor in 6 weeks. If you had elevated blood pressure or 4th degree laceration, you will need to be seen in 2 weeks. Test Results: Test results from this visit will be discussed in further detail at your follow-up appointment, if applicable. Discharge Plan Admission Admit Date/Time: 03/01/21 11:55 Primary Reason for Your Visit: vaginal delivery Attending Provider: Araceli Munoz Primary Care Provider: Satinder Hardy NP Discharge Orders/Prescriptions Prescriptions: No Action PNV #[id number] acid-dha 35 mg iron-5 mg iron-1 mg capsule 1 cap PO DAILY RF: 0 acetaminophen [Tylenol] 325 mg tablet 325 mg PO ONCE PRN (Reason: RYAN) RF: 0 (DME) blood-glucose meter Kit See Rx Instructions .ROUTE .MEDSUPPLY Qty: 1 RF: 0 (DME) Blood Glucose Test Strip See Rx Instructions .ROUTE .MEDSUPPLY Qty: 50 RF: 8 (DME) blood-glucose meter [T[employer]etrack Blood Glucose System] Kit See Rx Instructions .ROUTE .MEDSUPPLY Qty: 1 RF: 0 (DME) Truetrack Test Strip See Rx Instructions .ROUTE .MEDSUPPLY Qty: 100 RF: 4 Referrals / Follow Up: Satinder Hardy NP, [employer] [Primary Care Provider] - Disposition Disposition (needs filled in before D/C Order can be placed): Home, Self Care
[2021-03-02 05:51] LABS: Bedside Glucose 100 mg/dL (70-110)
[2021-03-02 05:51] LABS: Bedside Glucose 94 mg/dL (70-110)
[2021-03-02] MEDS: Naproxen 500 MG Tablet PO (05:57)
[2021-03-02] MEDS: Acetaminophen 500 MG Tablet 1000 MG PO (21:07)
--- NOTE | 2021-03-02 21:27 | NURSING ---
mother NICU nurse and CPR certified.
[2021-03-03] VITALS: BP 129/84; PULSE 90
[2021-03-03 04:47] VITALS: BP 128/82; PULSE 76; RESP 16; TEMP 36.6
[2021-03-03 06:50] LABS: Bedside Glucose 75 mg/dL (70-110)
--- NOTE | 2021-03-03 07:08 | PCM.PN.OB ---
Subjective Subjective Patient doing well without complaints. Tolerating PO. Ambulating and voiding without difficulty. feeding well. Denies chest pain, shortness of breath, calf pain/swelling, fevers, chills, lightheadedness. Objective Data Objective Data Vital Signs: Vital Signs Temp Pulse Resp BP Pulse Ox 97.8 F 76 16 128/82 H 98 03/03/21 04:47 03/03/21 04:47 03/03/21 04:47 03/03/21 04:47 03/02/21 16:54 Oxygen Delivery Method Room Air Weight: 190 lb Body Mass Index (BMI) 32.5 Intake & Output: Intake and Output for Last 24 Hours 03/01/21 03/02/21 03/03/21 23:59 23:59 23:59 Intake Total 1446.03 / 1446.03 1940.00 / 1940.00 500 / 500 Output Total 300 / 300 2100 / 2100 100 / 100 Balance 1146.03 / 1146.03 -160.00 / -160.00 400 / 400 Lab / Micro Data Result Diagrams: 03/01/21 15:35 Labs: Laboratory Results - last 24 hr 03/03/21 06:26: POC Glucose 75 Micro: Microbiology 03/01/21 10:30 Nasal Secretion SARS-CoV-2 Antigen (Rapid) - Final ROS Constitutional Constitutional: Reports systems reviewed and no addt'l complaints, except as documented Cardiovascular Cardiovascular: Reports systems reviewed and no addt'l complaints, except as documented Respiratory/Chest Respiratory/Chest: Reports systems reviewed and no addt'l complaints, except as documented Gastrointestinal Gastrointestinal: Reports systems reviewed and no addt'l complaints, except as documented Physical Exam Const alert, oriented x3 and no apparent distress HEENT Head and Scalp: atraumatic Resp normal respiratory effort GI soft to palpation and non-tender Bimanual Exam - Vag & Uterus: uterus non-tender Uterus Palpation: uterus fundus firm (below Umbilicus) Assessment & Plan (1) Gestational diabetes, diet controlled: QUALIFIERS: Trimester: third trimester Qualified Code(s): O24.410 - Gestational diabetes mellitus in , diet controlled COMMENT: endocrine and nutrition consult. growth us at 36 nl,and deliver by 39- 40. IOL set up for 03/06 7am (2) Vaginal delivery: COMMENT: IOL oligo gdma1 38 SM boy Jaylon PLAN: s/p PPD # 1 1. routine post delivery care 2. breast feeding- support given 3. rh positive 4. rubella immune
[2021-03-03 09:28] VITALS: BP 115/77; PULSE 85; RESP 14; TEMP 36.4; O2SAT 98
[2021-03-03 09:29] VITALS: BP 115/77; PULSE 82
[2021-03-03 14:35] VITALS: BP 121/79; PULSE 88; RESP 18; TEMP 36.7
[2021-03-03 14:38] VITALS: BP 121/79; PULSE 88
== END 2021-03-03 15:15 | disposition home or self-care (01) | DRG 807 ==
LOC: WP 12:00
PROVIDERS: Admitting Provider Obstetrics & Gynecology; PCP Nurse Practitioner Primary Care; Visit Provider Obstetrics & Gynecology
DX: O41.03X0 Oligohydramnios, third trimester, not applicable or unspecified (principal); Z37.0 Single live birth; Z20.822 Contact with and (suspected) exposure to COVID-19; O24.420 Gestational diabetes mellitus in childbirth, diet controlled; O69.81X0 Labor and delivery complicated by cord around neck, without compression, not applicable or unspecified; O36.8130 Decreased fetal movements, third trimester, not applicable or unspecified; Z3A.37 37 weeks gestation of pregnancy
CPT/HCPCS: 59025; 59050; 82962; 84112; 85025; 86850; 86900; 86901; 87426; 99218; J7120; G0378

== ENCOUNTER 2021-04-16 13:31 | Outpatient (CLI) | payer OTHER, SELFPAY ==
[2021-04-22 13:27] LABS: HPV Reflexed? NOT INDICATED
== END 2021-04-16 23:59 | disposition short-term general hospital (02) ==
LOC: LABSPEC 13:33
PROVIDERS: PCP Nurse Practitioner Primary Care; Referring Provider Obstetrics & Gynecology; Visit Provider Obstetrics & Gynecology
DX: Z12.4 Encounter for screening for malignant neoplasm of cervix (principal)
CPT/HCPCS: 88175; G0145

== ENCOUNTER → 2021-11-29 | Outpatient (CLI) | payer OTHER, SELFPAY ==
[2021-11-29 12:11] LABS: hCG Titer Quant., Serum 4 mIU/mL (1-3)
== END | disposition home or self-care (01) ==
LOC: LAB 10:44
PROVIDERS: Referring Provider Obstetrics & Gynecology; Visit Provider Obstetrics & Gynecology
DX: O36.80X0 Pregnancy with inconclusive fetal viability, not applicable or unspecified (principal)
CPT/HCPCS: 36415; 84702

== ENCOUNTER → 2022-03-13 | Outpatient (CLI) | payer OTHER, SELFPAY ==
[2022-03-13 11:40] LABS: Hepatitis B Surface Antigen Non-Reactive (Nonreactive)
[2022-03-18 10:07] LABS: Dilute Prothrombin Time (dPT) 37.1 sec (0.0-47.6); Dilute Russell Viper Venom 37.7 sec (0.0-47.0); Thrombin Time 16.3 sec (0.0-23.0); dPT Confirm Ratio 1.12 Ratio (0.00-1.34)
[2022-03-18 17:00] LABS: Anti-Cardiolipin Ab, IgA, Qn < 9 APL U/mL (0-11); Anti-Cardiolipin Ab, IgG, Qn < 9 GPL U/mL (0-14); Anti-Cardiolipin Ab, IgM, Qn < 9 MPL U/mL (0-12); Beta-2-Glycoprotein I IgA <9 (0-25); Beta-2-Glycoprotein I IgG <9 (0-20); Beta-2-Glycoprotein I IgM <9 (0-32); Interpretation Comment: (.)
== END | disposition home or self-care (01) ==
LOC: PAVLAB 10:32
PROVIDERS: Referring Provider Obstetrics & Gynecology; Visit Provider Obstetrics & Gynecology
DX: O26.20 Pregnancy care for patient with recurrent pregnancy loss, unspecified trimester (principal); Z3A.00 Weeks of gestation of pregnancy not specified
CPT/HCPCS: 36415; 86146; 86147; 86850; 86900; 86901; 87340

== ENCOUNTER 2022-03-21 12:21 | Outpatient (CLI) | payer OTHER, SELFPAY ==
[2022-03-21] VITALS (8 sets, daily range): BP systolic 100–134; BP diastolic 66–81; PULSE 90–117; RESP 16–17; TEMP 36.9–37.4; O2SAT 95–100; BMI 34.7
--- NOTE | 2022-03-21 12:23 | US_ITS ---
STUDY: FIRST TRIMESTER OBSTETRICAL ULTRASOUND REASON FOR EXAM: Female, 26 years old. Follow-up spontaneous LMP: Unknown. TECHNIQUE: Transvaginal PRIOR ULTRASOUND: None. FINDINGS: The uterus measures 9.3 x 5.3 x 4.7 cm. The endometrium measures 8 mm. There is a 5.3 x 4.0 x 3.6 cm complex avascular structure in the lower uterine segment. This likely represents retained products of conception. There is no intrauterine gestational sac, yolk sac or pole identified. The right ovary measures 3.8 x 3.0 x 1.8 cm. There is no right ovarian cyst. There is no visualized right adnexal mass or complex lesion. The left ovary measures 3.1 x 2.2 x 1.7 cm. There is no left ovarian cyst. There is no visualized left adnexal mass or complex lesion. There is no fluid in the cul de sac. US/Init OB < 14Wks US IMPRESSION: No intrauterine gestational sac, yolk sac or pole identified. 5.3 x 4.0 x 3.6 cm complex avascular structure in the lower uterine segment which likely represents retained products of conception. Electronically Signed: Jerod Dowd MD at 14:29 EST ,
--- NOTE | 2022-03-21 14:30 | PCM.HP.BLA ---
History and Physical MR#: [id number] Acct: [id number] Name:? NINOSKA CERVANTES Rep #: [id number] : 1995 ? ? Provider: Dr. Araceli Munoz MD Age/Sex:? 26/F ? ? Location: [facility] [place] Status: Signed Intake Vital Signs ? 03/21/2213:40 03/21/2213:40 Height 1.6 m 1.6 m Weight: 87.543 kg ? BMI 34.2 ? BP 120/80 ? 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 03/21/22 [History Confirmed 03/21/22] Post menopausal: No : No [facility] Medical History? Abnormal glucose affecting Gestational diabetes, diet controlled Oligohydramnios Vaginal delivery Surgical History? History of appendectomy History of surgery Family History? Father Hypertension Social History? adopted:? No household members:? spouse and children housing:? house number of children:? 1 current occupational status:? 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 No pets and animals:? Yes pets and animals: dog(s) history of recent travel:? No sexually active:? Yes Smoking Status:? Never smoker alcohol intake:? never substance use type:? does not use well-balanced diet:? daily or most days caffeine:? Yes Type: coffee Number of servings: 1 eating out:? 1-3 times/week during the past year weight has:? remained stable what type of physical activity do you participate in:? none karlie/restoration:? None seatbelt use:? always do you feel safe at home:? Yes additional social history:? Spouse- Satinder Business Assembler [employer] HPI preop Details: NINOSKA CERVANTES is a 26 year old who presents for incomplete miscarriage with retained products with odor, no fevers but cramping, suspected septic Ab. Female Reproductive History Menopausal Symptoms: No night sweats History ? ? ? 3 ? Elective abortions ? Hx Para ? ? ? 1 ? Spontaneous abortions ? ? ? 2 Hx # Term Pregnancies ? Ectopic pregnancies ? Hx # Pregnancies ? Multiple births ? # of living children ? ? ? 1 Past Pregnancies Del. Date Name GA/Weeks Outcome Route Bth Weight Gen Labor Lgth Anesthesia Del Locatn Provider FOB 03/02/21 Jaylon 38 live - full term ? Male ? ? [facility] Dr. Munoz ? Delivery Date: 03/02/21? Last Updated by: Almaz Franco ? ? ? IOL Olio GDMA1 decreased FM ROS Const Constitutional: Denies fatigue, night sweats, weight gain or weight loss ENT ENT: Reports system reviewed and no additional complaints, except as documented Cardio Card: Denies chest pain Resp Resp: Denies cough or dyspnea GI GI: Reports as per HPI; Denies abdominal pain, constipation, nausea or vomiting : Denies nipple discharge, urinary frequency, urinary incontinence, urinary hesitancy, urinary urgency, vaginal discharge, vaginal dryness, vaginal odor or vaginal pruritus Musc Musc: Denies arthralgias, back pain or muscle weakness Skin Skin/Breast: Denies alopecia, change in hair, dry skin, breast mass, breast pain, breast skin changes or nipple discharge Neuro Neuro: Reports system reviewed and no additional complaints, except as documented Psych Psych: Reports system reviewed and no additional complaints, except as documented Endo Endo: Denies cold intolerance, excessive sweating, heat intolerance or polydipsia Chay/Lymph Hematologic/Lymphatic: Denies easy bleeding, Denies easy bruising and Denies lymphadenopathy Exam Const General: cooperative, healthy appearing, comfortable, no acute distress and well developed Orientation: alert [facility] Head: normal to inspection and normocephalic Ears: hearing grossly normal bilaterally and external ears normal Nose: external nose normal and nares normal Face and sinus: normal facial exam Neck Neck: normal visual inspection and no lymphadenopathy Thyroid: thyroid normal Chest Chest palpation & inspection: normal inspection of the chest Resp Effort & Inspection: normal respiratory effort Auscultation: clear to auscultation bilaterally Cardio Rate: regular rate Rhythm: regular rhythm Heart Sounds: S1 normal and S2 normal GI Inspection: normal to inspection and non-distended Palpation: soft and no hepatosplenomegaly Musc Other: gross motor intact no deficits, full bilateral strength Skin General: no rashes or lesions noted Neuro General: patient alert, patient awake, moves all extremities and no focal motor deficits Motor: muscle tone normal throughout Extrem General: normal to inspection and no pedal edema Psych Appearance: grossly normal Mental Status: mental status grossly normal Affect: normal affect Speech and Movement: speech and movement normal Coding Level of Care Code Off vis,est,level 4 Diagnoses Incomplete ? O03.4 Assessment and Plan Assessment and Plan (1) Incomplete : ?Status:?Acute ?Comment: suspected infection- will give antibiotics and dc home on augmentin and flagyl Plan After discussing the patient's diagnosis and treatment plan options, patient wishes to proceed with surgical management.? I have discussed with the patient the risks, benefits, and alternatives of the procedure which include but are not limited to risks of anesthesia, bleeding, infection, possible damage to bowel, bladder, or surrounding vasculature which could lead to additional surgery to evaluate any complications.? Patient agrees to procedure and wishes to proceed.? ACOG/uptodate references given for additional information regarding procedure.? UPDATE- I have seen the patient and performed any clinically relevant updates to the history and physical exam. Araceli Munoz MD
[2022-03-21] MEDS: 0.9% Normal Saline 1,000 ML 15 ML IV (15:10)
[2022-03-21] MEDS: metroNIDAZOLE 500 MG Tablet PO (15:10)
[2022-03-21] MEDS: Doxycycline 100 MG CAPSULE PO (15:11)
[2022-03-21 15:16] LABS: Absolute Lymphocyte Count 3.73 X10^3/uL (0.83-4.51); Absolute Neutrophil Count 6.6 X10^3/uL (2.0-7.7); Basophil# 0.05 X10^3/uL; Basophil% 0.4 % (0-1); Eosinophil# 0.13 X10^3/uL; Eosinophils% 1.2 % (0-5); Hematocrit 32.4 % (37-47); Hemoglobin 11.3 g/dL (12.0-15.0); Lymphocyte # 3.73 X10^3/ul (0.83-4.51); Lymphocyte % 33.4 % (19-41); Mean Corp Hgb Conc 34.9 g/dL (32-36); Mean Corpuscular Hgb 29.8 pg (27.0-32.0); Mean Corpuscular Volume 85.5 fL (81-99); Mean Platelet Vol. 9.4 fl (6.2-12.0); Monocyte# 0.59 X10^3/uL; Monocyte% 5.3 % (0-10); NRBC Flagged by Analyzer 0 % (0-5); Neutrophil # 6.62 X10^3/uL (2.7-7.7); Neutrophil % 59.3 % (47-70); Platelet Count 315 K/mm3 (150-450); RBC Distribution Width CV 11.9 % (11.6-14.6); RBC Distribution Width SD 36.6 fl (35.1-43.9); Red Blood Count 3.79 M/mm3 (4.2-5.4); White Blood Count 11.2 K/mm3 (4.4-11.0)
--- NOTE | 2022-03-21 16:00 | POC_PTH ---
PATIENT: NINOSKA CERVANTES LOC: [facility] [place] U#:[id number] AGE/SX: 26/F ROOM: RE03/21/[address]: Dr. Araceli Munoz MD : 1995 BED: DIS: 03/21/2022 SPEC #: [id number] RECD: 03/25/22 09:38 STATUS: JODY RELucinda #: [id number] TIARA: 03/21/22 16:[address]: Araceli Munoz DEPT: SURGICAL PATHOLOGY RECD BY: Liane Reddy ENTERED: 03/25/22 09:39 SP TYPE: PROD CONC OTHR DR: DO Dr. Dorothea Patricio DO Tissues: Product of conception, NOS Procedures: Surgery Specimen Level IV HEADER OPERATION: Suction dilation and curettage PRE-OP DIAGNOSIS: Incomplete TISSUE SUBMITTED: Products of missed conception MICROSCOPIC DIAGNOSIS Endometrium, curettage: Chorionic villi, decidualized stroma and trophoblastic cells consistent with products of conception. AM:karen 03/26/2022 MICROSCOPIC DESCRIPTION Slides are reviewed. GROSS DESCRIPTION Received in fixative is one container labeled with the patient's name and designated products of conception. The specimen consists of multiple irregular fragments of red-calvin soft tissue that in aggregate measure 8 x 7 x 2 cm. parts are not recognized. Molder Shoulder Pad portions are submitted in three cassettes. / AM:karen 03/25/2022 TC:5 CPT: 48593
--- NOTE | 2022-03-21 17:51 | OP.PCM_ITS ---
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 She was prepped and draped in the normal sterile fashion the dorsal lithotomy position. Bladder was drained of clear urine and anterior lip of the cervix was grasped and visualized products seen protruding from the os, malodorous, cultures sent. the uterus sounded to 8 cm. Progressive passes were made removing the retained products of conception without complication. Sharp curettage confirmed complete removal of the retained products. All instruments were removed from the vagina and excellent hemostasis was noted and the patient was taken to recovery in stable condition. Grafts/Implants Used: none Complications none Admit VTE Documentation VTE Present on Admission: No VTE Mechan Device Prophylaxis: SCD's Procedures Urinary/Genital 52xxx-59xxx: [id number] Trmt of incomplete Ab, any TM
--- NOTE | 2022-03-21 17:52 | DCINST_ITS ---
Discharge Instructions Procedure D&C Diet Discharge Diet: No restrictions Activity Discharge Activity: Return to Normal Activity, May Shower and May Take a Tub Bath (after 1 week) May resume sexual activity in: 1-2 weeks Weight Bearing Status: Weight bearing as tolerated Lifting Restrictions: none Dressing / Incision Call your doctor if you observe: Fever of 101 or Higher, Using more than 1 pad per hour, Shortness of breath and Uncontrolled pain Follow Up Care Please Follow Up With: Araceli Munoz MD When: Call [phone] to schedule appointment. Test Results: Test results from this visit will be discussed in further detail at your follow- up appointment, if applicable. Discharge Plan Admission Reason For Visit: MISSED Attending Provider: Araceli Munoz Primary Care Provider: Dorothea San Discharge Orders/Prescriptions Prescriptions: New amoxicillin-pot clavulanate 875-125 mg tablet 1 tab PO BID Qty: 20 0RF metronidazole 500 mg tablet 500 mg PO BID 10 Days Qty: 20 0RF oxycodone-acetaminophen [Percocet] 5-325 mg tablet 1 tab PO Q6H PRN (Reason: pain) 7 Days Qty: 10 0RF Referrals / Follow Up: Dorothea San DO [Primary Care Provider] - Disposition Patient Disposition: Home, Self Care
[2022-03-21] MEDS: Lidocaine 1% (20 ml mdv) 20 ML Vial (18:05)
== END 2022-03-21 19:19 | disposition home or self-care (01) ==
LOC: US 13:32 → SDC 13:32 → AC 14:46
PROVIDERS: Referring Provider Obstetrics & Gynecology; Visit Provider Obstetrics & Gynecology
PROC: (CPT 59812; principal; 2022-03-21 15:45)
DX: O03.4 Incomplete spontaneous abortion without complication (principal)
CPT/HCPCS: 59812; 76801; 85025; 86850; 86900; 86901; 87070; 87075; 87077; 87186; 87205; 88305; J7030; A4216; J0696

== ENCOUNTER → 2022-08-22 | Outpatient (CLI) | payer OTHER, SELFPAY ==
[2022-08-22 09:49] LABS: hCG Titer Quant., Serum 3 mIU/mL (1-3)
[2022-08-27 06:08] LABS: Anti-Cardiolipin Ab, IgA, Qn < 9 APL U/mL (0-11); Anti-Cardiolipin Ab, IgG, Qn < 9 GPL U/mL (0-14); Anti-Cardiolipin Ab, IgM, Qn 14 MPL U/mL (0-12); Beta-2-Glycoprotein I IgA <9 (0-25); Beta-2-Glycoprotein I IgG <9 (0-20); Beta-2-Glycoprotein I IgM <9 (0-32); Dilute Prothrombin Time (dPT) 35.7 sec (0.0-47.6); Dilute Russell Viper Venom 41.2 sec (0.0-47.0); Interpretation Comment: (.); PTT-LA 37.2 sec (0.0-43.5); Thrombin Time 16.7 sec (0.0-23.0); dPT Confirm Ratio 1.03 Ratio (0.00-1.34)
== END | disposition home or self-care (01) ==
LOC: PAVLAB 09:17
PROVIDERS: Referring Provider Obstetrics & Gynecology; Visit Provider Obstetrics & Gynecology
DX: N96 Recurrent pregnancy loss (principal); N92.0 Excessive and frequent menstruation with regular cycle
CPT/HCPCS: 36415; 84702; 86146; 86147

== ENCOUNTER → 2023-08-11 | Outpatient (CLI) | payer OTHER, SELFPAY ==
[2023-08-17 02:06] LABS: Anti-Cardiolipin Ab, IgG, Qn < 9 GPL U/mL (0-14); Anti-Cardiolipin Ab, IgM, Qn < 9 MPL U/mL (0-12); Beta-2-Glycoprotein I IgA <9 (0-25); Beta-2-Glycoprotein I IgG <9 (0-20); Beta-2-Glycoprotein I IgM <9 (0-32); Dilute Russell Viper Venom 33.8 sec (0.0-47.0); Interpretation Comment: (.); PTT-LA 33.5 sec (0.0-43.5); Thrombin Time 17.1 sec (0.0-23.0); dPT Confirm Ratio 1.05 Ratio (0.00-1.34)
== END | disposition home or self-care (01) ==
LOC: PAVLAB 09:40
PROVIDERS: Referring Provider Obstetrics & Gynecology; Visit Provider Obstetrics & Gynecology
DX: N96 Recurrent pregnancy loss (principal)
CPT/HCPCS: 36415; 86146; 86147

== ENCOUNTER → 2023-09-29 | Outpatient (CLI) | payer OTHER, SELFPAY ==
[2023-09-29 09:34] LABS: hCG Titer Quant., Serum 14050 mIU/mL (1-3)
== END | disposition home or self-care (01) ==
LOC: PAVLAB 08:37
PROVIDERS: Referring Provider Obstetrics & Gynecology; Visit Provider Obstetrics & Gynecology
DX: O09.299 Supervision of pregnancy with other poor reproductive or obstetric history, unspecified trimester (principal); Z3A.00 Weeks of gestation of pregnancy not specified
CPT/HCPCS: 36415; 84702

== ENCOUNTER → 2023-10-01 | Outpatient (CLI) | payer OTHER, SELFPAY ==
--- NOTE | 2023-10-01 07:47 | US_ITS ---
STUDY: FIRST TRIMESTER OBSTETRICAL ULTRASOUND REASON FOR EXAM: Female, 28 years old viability LMP: August 14, 2023. TECHNIQUE: Transvaginal TECHNICAL QUALITY: Adequate. PRIOR ULTRASOUND: None. FINDINGS: There is visualization of a single gestational sac in a normal intrauterine position. The mean sac diameter (MSD) measures 1.8 cm, indicating an estimated gestational age (EGA) of 6 weeks, 5 days. The gestational sac shape is within normal limits. There is a visualized yolk sac. The yolk sac measures 4 mm. The placenta is non-visualized. There is visualization of a live embryo. The crown-rump length (CRL) measures 4 mm, indicating an estimated gestational age (EGA) of 6 weeks, 2 days. There is demonstrated cardiac activity with a heart rate of 110 bpm. The estimated gestation age (EGA) by LMP is 6 weeks, 6 days. The estimated date of delivery (ESAU) by LMP is May 20, 2024. The estimated gestation age (EGA) by US is 6 weeks, 4 days. The estimated date of delivery (ESAU) by US is May 22, 2024. The uterus measures 9.6 cm x 5.5 cm x 4.6 cm. There is no demonstrated uterine fibroid although the uterus is of heterogeneous echotexture. The cervix is closed. The right ovary measures 4.6 x 2.2 cm x 2.4 cm. There is no right ovarian cyst. There is no visualized right adnexal mass or complex lesion. The left ovary measures 2.9 cm x 2.7 cm x 2 cm. There is no left ovarian cyst. There is no visualized left adnexal mass or complex lesion. There is no fluid in the cul de sac. US/Transvaginal w/Preg US IMPRESSION: Single live intrauterine gestation with mean gestational age of 6 weeks and 4 days. Electronically Signed: Vern Wilkerson MD at 10:08 EDT ,
== END | disposition home or self-care (01) ==
LOC: US 07:46
PROVIDERS: Referring Provider Obstetrics & Gynecology; Visit Provider Obstetrics & Gynecology
DX: O26.20 Pregnancy care for patient with recurrent pregnancy loss, unspecified trimester (principal); Z3A.00 Weeks of gestation of pregnancy not specified
CPT/HCPCS: 76817

== ENCOUNTER → 2023-10-22 | Outpatient (CLI) | payer OTHER, SELFPAY ==
[2023-10-26 22:07] LABS: Chlamydia By Nucleic Acid AMP Negative (Negative); Gonococcus By Nucleic Acid AMP Negative (Negative)
== END | disposition home or self-care (01) ==
LOC: LABSPEC 17:10
PROVIDERS: Referring Provider Obstetrics & Gynecology; Visit Provider Obstetrics & Gynecology
DX: O09.91 Supervision of high risk pregnancy, unspecified, first trimester (principal); Z3A.00 Weeks of gestation of pregnancy not specified
CPT/HCPCS: 87086; 87088; 87491; 87591

== ENCOUNTER → 2023-11-03 | Outpatient (CLI) | payer OTHER, SELFPAY ==
[2023-11-03 11:51] LABS: Absolute Lymphocyte Count 3.12 X10^3/uL (0.83-4.51); Absolute Neutrophil Count 7.5 X10^3/uL (2.0-7.7); Basophil# 0.03 X10^3/uL; Basophil% 0.3 % (0-1); Eosinophil# 0.08 X10^3/uL; Eosinophils% 0.7 % (0-5); Hematocrit 39.8 % (37-47); Hemoglobin 13.6 g/dL (12.0-15.0); Lymphocyte # 3.12 X10^3/ul (0.83-4.51); Lymphocyte % 27.5 % (19-41); Mean Corp Hgb Conc 34.2 g/dL (32-36); Mean Corpuscular Hgb 28.2 pg (27.0-32.0); Mean Corpuscular Volume 82.4 fL (81-99); Mean Platelet Vol. 9.8 fl (6.2-12.0); Monocyte# 0.57 X10^3/uL; NRBC Flagged by Analyzer 0 % (0-5); Neutrophil % 66.1 % (47-70); Platelet Count 252 K/mm3 (150-450); RBC Distribution Width CV 12.2 % (11.6-14.6); RBC Distribution Width SD 36.7 fl (35.1-43.9); Red Blood Count 4.83 M/mm3 (4.2-5.4); White Blood Count 11.4 K/mm3 (4.4-11.0)
[2023-11-03 13:02] LABS: HIV - WCH Non-Reactive (Nonreactive); Hepatitis B Surface Antigen Non-Reactive (Nonreactive); Hepatitis C Antibody Non-Reactive (Nonreactive); Rubella IgG Reactive (Nonreactive); Syphilis Antibodies Non-reactive
== END | disposition home or self-care (01) ==
LOC: PAVLAB 11:33
PROVIDERS: Referring Provider Obstetrics & Gynecology; Visit Provider Obstetrics & Gynecology
DX: O09.91 Supervision of high risk pregnancy, unspecified, first trimester (principal); Z86.32 Personal history of gestational diabetes
CPT/HCPCS: 36415; 83036; 85025; 86703; 86762; 86780; 86803; 86850; 86900; 86901; 87340

== ENCOUNTER → 2024-01-04 | Outpatient (CLI) | payer OTHER, SELFPAY ==
--- NOTE | 2024-01-04 07:56 | US_ITS ---
HISTORY: anatomy scan. TECHNIQUE: Transabdominal and transvaginal pelvic ultrasound was performed. 116 images. COMPARISON: 10/01/2023. FINDINGS: INTRAUTERINE GESTATION(s): Single. PRESENTATION: Variable, breech. HEART MOTION: 152 bpm. PLACENTA: Posterior grade 0. No placenta previa. CERVIX: 5.3 cm long and closed. AMNIOTIC FLUID: Largest fluid pocket 3.6 x 6 cm. biometry- BIPARIETAL DIAMETER: 4.6 cm, corresponding to 19 weeks 6 days. HEAD CIRCUMFERENCE: 17.6 cm, corresponding to 20 weeks 0 days. ABDOMINAL CIRCUMFERENCE: 15.4 cm, corresponding to 20 weeks 4 days. FEMUR LENGTH: 3.1 cm, corresponding to 19 weeks 3 days. ESTIMATED GESTATIONAL AGE: 19 weeks 6 days. ESTIMATED DUE DATE (ESAU): 05/24/2024. ESTIMATED WEIGHT: 330 g corresponding to 41st percentile ANATOMY: Anterior posterior cranial fossa, facial profile, nose/lips, spine, bilateral upper and lower extremities, four-chamber heart, three-vessel cord insertion, stomach, kidneys, and bladder are visualized IMPRESSION: Single living intrauterine in variable position with an estimated gestational age of 19 weeks 6 days. Unremarkable anatomic survey. Electronically Signed: Sunita Jalloh MD at 10:00 EDT , HISTORY: anatomy scan. TECHNIQUE: Transabdominal and transvaginal pelvic ultrasound was performed. 116 images. COMPARISON: 10/01/2023. FINDINGS: INTRAUTERINE GESTATION(s): Single. PRESENTATION: Variable, breech. HEART MOTION: 152 bpm. PLACENTA: Posterior grade 0. No placenta previa. CERVIX: 5.3 cm long and closed. AMNIOTIC FLUID: Largest fluid pocket 3.6 x 6 cm. biometry- BIPARIETAL DIAMETER: 4.6 cm, corresponding to 19 weeks 6 days. HEAD CIRCUMFERENCE: 17.6 cm, corresponding to 20 weeks 0 days. ABDOMINAL CIRCUMFERENCE: 15.4 cm, corresponding to 20 weeks 4 days. FEMUR LENGTH: 3.1 cm, corresponding to 19 weeks 3 days. ESTIMATED GESTATIONAL AGE: 19 weeks 6 days. ESTIMATED DUE DATE (ESAU): 05/24/2024. ESTIMATED WEIGHT: 330 g corresponding to 41st percentile ANATOMY: Anterior posterior cranial fossa, facial profile, nose/lips, spine, bilateral upper and lower extremities, four-chamber heart, three-vessel cord insertion, stomach, kidneys, and bladder are visualized US/OB Anatomy w/ Transvaginal
== END | disposition home or self-care (01) ==
LOC: US 07:52
PROVIDERS: Referring Provider Obstetrics & Gynecology; Visit Provider Obstetrics & Gynecology
DX: O09.91 Supervision of high risk pregnancy, unspecified, first trimester (principal); Z3A.00 Weeks of gestation of pregnancy not specified
CPT/HCPCS: 76805; 76817

== ENCOUNTER → 2024-02-24 | Outpatient (CLI) | payer OTHER, SELFPAY ==
[2024-02-24 07:37] LABS: Absolute Lymphocyte Count 2.14 X10^3/uL (0.83-4.51); Absolute Neutrophil Count 9.1 X10^3/uL (2.0-7.7); Basophil# 0.03 X10^3/uL; Basophil% 0.2 % (0-1); Eosinophil# 0.12 X10^3/uL; Hematocrit 37.1 % (37-47); Hemoglobin 12.4 g/dL (12.0-15.0); Lymphocyte # 2.14 X10^3/ul (0.83-4.51); Lymphocyte % 17.4 % (19-41); Mean Corp Hgb Conc 33.4 g/dL (32-36); Mean Corpuscular Hgb 28.7 pg (27.0-32.0); Mean Corpuscular Volume 85.9 fL (81-99); Mean Platelet Vol. 10.7 fl (6.2-12.0); Monocyte# 0.66 X10^3/uL; Monocyte% 5.4 % (0-10); NRBC Flagged by Analyzer 0 % (0-5); Neutrophil # 9.12 X10^3/uL (2.7-7.7); Neutrophil % 74.4 % (47-70); Platelet Count 206 K/mm3 (150-450); RBC Distribution Width CV 13.1 % (11.6-14.6); RBC Distribution Width SD 40.4 fl (35.1-43.9); Red Blood Count 4.32 M/mm3 (4.2-5.4); White Blood Count 12.3 K/mm3 (4.4-11.0)
[2024-02-24 08:25] LABS: Glucose GTT-Gestation. Fasting 99 mg/dL (<105)
[2024-02-24 08:55] LABS: Glucose GTT-Gestational 1 Hr 188 mg/dL (<190)
[2024-02-24 09:33] LABS: Glucose GTT-Gestational 2 Hr 160 mg/dL (<165)
[2024-02-24 10:35] LABS: Glucose GTT-Gestational 3 Hr 76 L (<145)
[2024-02-24 13:38] LABS: HIV - WCH Non-Reactive (Nonreactive); Syphilis Antibodies Non-reactive
== END | disposition home or self-care (01) ==
LOC: LAB 07:16
PROVIDERS: Referring Provider Obstetrics & Gynecology; Visit Provider Obstetrics & Gynecology
DX: O09.299 Supervision of pregnancy with other poor reproductive or obstetric history, unspecified trimester (principal); Z13.1 Encounter for screening for diabetes mellitus; Z86.32 Personal history of gestational diabetes; Z3A.00 Weeks of gestation of pregnancy not specified
CPT/HCPCS: 36415; 82951; 82952; 85025; 86703; 86780

== ENCOUNTER → 2024-04-25 | Outpatient (CLI) | payer OTHER, SELFPAY ==
--- NOTE | 2024-04-25 08:55 | US_ITS ---
PROCEDURE: OB LIMITED WITH BIOMETRICS REASON FOR EXAM: growth. COMPARISON: Comparison is made with prior study dated January 04, 2024. FINDINGS Number: 1 Position: Vertex Placental Position: Posterior and not low-lying. Placental Abnormalities: None. DIMENSIONS: Biparietal Diameter: 8.39 cm/33 weeks and 5 days: 6% Head Circumference: 30.74 cm/34 weeks and 2 days: 2% Abdominal Circumference: 32.59 cm/36 weeks and 4 days: 71% Femur Length: /6.71 cm ESTIMATED WEIGHT: 34 weeks and 4 days: 11% ESTIMATED WEIGHT PERCENTILE (24+ weeks): 2724 g plus/-409 g. 38 percentile. ESTIMATED GESTATIONAL AGE: Baseline: 36 weeks and 1 day. By Ultrasound: 35 weeks and 6 days ESTIMATED DATE OF DELIVERY: Baseline: May 22, 2024 By Ultrasound: May 24, 2024 BIOPHYSICAL ASSESSMENT: Amniotic Fluid Volume: Subjectively normal. Amniotic Fluid Index: 11.91 (8-24 cm normal range) Cardiac Motion: 145 (average) Trunk and Limb Motion: Present. MATERNAL ANATOMY: Adnexa: Neither maternal ovary is successfully identified. Please note that there is a nuchal cord. US/OB Limited With Biometrics IMPRESSION: UNREMARKABLE ANATOMIC SURVEY. Reading Location: [facility]
== END | disposition home or self-care (01) ==
LOC: OPUS 08:54
PROVIDERS: Referring Provider Obstetrics & Gynecology; Visit Provider Obstetrics & Gynecology
DX: O24.419 Gestational diabetes mellitus in pregnancy, unspecified control (principal); Z3A.36 36 weeks gestation of pregnancy
CPT/HCPCS: 76816

== ENCOUNTER → 2024-04-27 | Outpatient (CLI) | payer OTHER, SELFPAY | END | disposition home or self-care (01) | LOC: LABSPEC 10:55 | PROVIDERS: Referring Provider Obstetrics & Gynecology; Visit Provider Obstetrics & Gynecology | DX: O09.91 Supervision of high risk pregnancy, unspecified, first trimester (principal); Z3A.00 Weeks of gestation of pregnancy not specified | CPT/HCPCS: 87081 ==

== ENCOUNTER 2024-05-01 18:14 | Outpatient (CLI) | payer OTHER, SELFPAY ==
[2024-05-01 18:26] VITALS: BMI 34.7
[2024-05-01 18:28] VITALS: PULSE 89; RESP 16; TEMP 37.2; O2SAT 98
[2024-05-01 18:31] VITALS: BP 136/84; PULSE 86
--- NOTE | 2024-05-01 18:48 | US_ITS ---
PROCEDURE: BIOPHYSICAL PROF W/O NON STRES REASON FOR EXAM: Decreased movements TECHNIQUE: Biophysical analysis COMPARISON: Reviewed. FINDINGS: position is cephalic. heart rate identified on 126 beats per minute. Amniotic fluid volume is normal with the largest fluid pocket measuring at 4.4 cm. Amniotic fluid index measured at 10.8 cm. age by LMP corresponds to 37 weeks and 0 days with an estimated delivery date by LMP of 05/22/2024. Placenta location is posterior, not low lying. Biophysical profile measured at 8/8. Placenta graded at 3 with complete indentations of chorionic plate through to the basilar plate causing placental separation. Clinical and imaging surveillance is advised. US/Biophysical Prof W/O Non Stres IMPRESSION: As above. Reading Location: [facility]
[2024-05-01 20:43] VITALS: BP 138/84; PULSE 79; RESP 18; TEMP 36.7
--- NOTE | 2024-05-01 21:11 | OB.TRI.HP_ITS ---
HPI - General HPI Narrative NINOSKA CERVANTES, is a 28 y/o @ 37 weeks who presents to L&D for decreased movement. The tracing was a cat 1 with accelerations however there was one small variability initially when the baby was put on the monitor and a bpp was ordered. Maternal Data Information ESAU Calculator Estimated Delivery Date Method Current WG Current Estimate 05/22/24 Ultrasound #1 37w 0d Other Estimates 05/20/24 LMP (Uncertain) 37w 2d PFSH PFSH Medical History (Updated 04/29/24 @ 16:10 by Laureen Gao CNM) Endometritis Missed History of recurrent miscarriages Incomplete Genetic testing of female History of recurrent miscarriages Supervision of high risk , antepartum Vaginal delivery Oligohydramnios Gestational diabetes, diet controlled Abnormal glucose affecting Home Medications ?Medication ?Instructions ?Recorded ?Last Taken ?Type vitamin#30 30 mg iron-10 1 cap PO 08/29/22 History mg iron-folic acid 1 mg-omg3 capsule Allergy/AdvReac Type Severity Reaction Status Date / Time No Known Allergies Allergy Verified 05/01/24 20:46 Family History Father Hypertension Surgical History History of dilation and curettage History of surgery History of appendectomy Social History adopted: No household members: spouse and children housing: house number of children: 1 current occupational status: employed 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 current occupational exposures/hazards: No pets and animals: Yes pets and animals: dog(s) history of recent travel: No sexually active: Yes Smoking Status: Never smoker alcohol intake: never substance use type: does not use well-balanced diet: daily or most days caffeine: Yes Type: coffee Number of servings: 1 eating out: 1-3 times/week during the past year weight has: remained stable what type of physical activity do you participate in: none karlie/sikhism: None seatbelt use: always do you feel safe at home: Yes additional social history: Spouse- Satinder Business [employer] History 8 Elective abortions Hx Para 1 Spontaneous abortions 6 Hx # Term Pregnancies Ectopic pregnancies Hx # Pregnancies Multiple births # of living children 1 Past Pregnancies Del. Date Name GA/Weeks Outcome Route Bth Weight Infant Gen Labor Lgth Anesthesia Del Gu[place]erm[place] Provider FOB 03/02/21 Jaylon 38 live - full term Male [facility] Dr. Munoz Delivery Date: 03/02/21 Last Updated by: Almaz Franco IOL Olio [email or web address] decreased FM Visit Details Expected Delivery Route/Plan Labor Preferences- CB/BF classes: [] labor support person: [] labor intervention preferences: [] pain management options preferred: [] cut cord/dad catch: [] : [] PP control planned: [] discussed possible routes of delivery and associated risks: [] special requests: [] Plans Covid status: [] Flu vaccine: given Tdap vaccine: given Rhogam: na LARC form signed: declined movement and labor precautions reviewed. Problem list reviewed and updated with the most current plan of care details and appropriate orders placed. Relevant counseling for the gestational age provided. Continue routine care and follow up unless otherwise noted in visit notes/problem list details OB Flowsheet Initial Weight: Not Recorded Date -?-?-?-?-?-?-?-?-?-?-?-?- EGA Weight BP Urine Prot -?-?-?-?-?-?-?-?-?-?-?-?- Glucose FHR FuHt Pres Dilation -?-?-?-?-?-?-?-?-?-?-?-?- Effaced St Visit Note 10/22/23 -?-?-?-?-?-?-?-?-?-?-?-?- 9w 4d 199 lb 4 oz 118/83 -?-?-?-?-?-?-?-?-?-?-?-?- 185 -?-?-?-?-?-?-?-?-?-?-?-?- SM- CRL 2.5 cm c ons with LMP 10/27/23 -?-?-?-?-?-?-?-?-?-?-?-?- 10w 2d 198 lb 6 oz 142/84 Nega tive -?-?-?-?-?-?-?-?-?-?-?-?- Negative 185 -?-?-?-?-?-?-?-?-?-?-?-?- JV- pt being see n for vaginal bleeding today. on exam there is brown/ pink discharge. ultrasound is reassuring. RTO in one week. 11/03/23 -?-?-?-?-?-?-?-?-?-?-?-?- 11w 2d 197 lb 127/87 -?-?-?-?-?-?-?-?-?-?-?-?- 180 -?-?-?-?-?-?-?-?-?-?-?-?- SM- no vb labs d rawn today 11/06/23 -?-?-?-?-?-?-?-?-?-?-?-?- 11w 5d 198 lb 143/88 129/84 Negative -?-?-?-?-?-?-?-?-?-?-?-?- Negative 160 -?-?-?-?-?-?-?-?-?-?-?-?- kw- work in for spotting. FHT and movement on US. 11/17/23 -?-?-?-?-?-?-?-?-?-?-?-?- 13w 2d 197 lb 137/87 Negative -?-?-?-?-?-?-?-?-?-?-?-?- Negative 170 -?-?-?-?-?-?-?-?-?-?-?-?- SM- no vb lof cr maping low risk nipt 12/03/23 -?-?-?--?-?-?-?-?-?-?-?-?- 15w 4d 197 lb 4 oz 124/76 Nega tive -?-?-?-?-?-?-?-?-?-?-?-?- Negative 150 -?-?-?-?-?-?-?-?-?-?-?-?- JV- no lof, vagi nal bleeding, or cramping. has anatomy scan scheduled. having another boy 12/21/23 -?-?-?-?-?-?-?-?-?-?-?-?- 18w 1d 199 lb 6 oz 131/78 Nega tive -?-?-?-?-?-?-?-?-?-?-?-?- Negative 150 -?-?-?-?-?-?-?-?-?-?-?-?- KW- work in for heart tones and patient anxiety. FHT and movement noted on US today. reassurance given. 12/31/23 -?-?-?-?-?-?-?-?-?-?-?-?- 19w 4d 197 lb 138/90 Negative -?-?-?-?-?-?-?-?-?-?-?-?- Negative 150 20 -?-?-?-?-?-?-?-?-?-?-?-?- SM- no vb lof go od fm no regular ctx 01/27/24 -?-?-?-?-?-?-?-?-?-?-?-?- 23w 3d 199 lb 4 oz 116/72 Nega tive -?-?-?-?-?-?-?-?-?-?-?-?- Negative 147 -?-?-?-?-?-?-?-?-?-?-?-?- JV- no lof, vaga inal bleeding, or cramping. plans to do 3 hr gtt instead of 1 hr. 02/16/24 -?-?-?-?-?-?-?-?-?-?-?-?- 26w 2d 201 lb 6 oz 124/75 Nega tive -?-?-?-?-?-?-?-?-?-?-?-?- Negative 150 27 -?-?-?-?-?-?-?-?-?-?-?-?- SM- no vb lof go od fm no reuglar ctx 03/02/24 -?-?-?-?-?-?-?-?-?-?-?-?- 28w 3d 202 lb 122/86 Negative -?-?-?-?-?-?-?-?-?-?-?-?- Negative 139 30 -?-?-?-?-?-?-?-?-?-?-?-?- JV- no lof, vagi nal bleeding, or dec fm. consult to nutrition sent. JV- no lof, vaginal bleeding , or dec fm. consult to nutrition sent. last 2 fasting was 99, 98. and after meals are in the low 100's. [place]ap [place] 03/14/24 -?-?-?-?-?-?-?-?-?-?-?-?- 30w 1d 200 lb 132/84 Trace -?-?-?-?-?-?-?-?-?-?-?-?- Negative 130 -?-?-?-?-?-?-?-?-?-?--?-?- SM- no vb lof go od fm no regular ctx 03/25/24 -?-?-?-?-?-?-?-?-?-?-?-?- 31w 5d 199 lb 8 oz 128/83 Nega tive -?-?-?-?-?-?-?-?-?-?-?-?- Negative 140 31 -?-?-?-?-?-?-?-?-?-?-?-?- SM- SM- no vb lof good fm no reu lar ctx co swelling BS controlled 04/11/24 -?-?-?-?-?-?-?-?-?-?-?-?- 34w 1d 202 lb 6 oz 124/78 Nega tive -?-?-?-?-?-?-?-?-?-?-?-?- Negative 145 34 -?-?-?-?-?-?-?-?-?-?-?-?- KW- no vb/lof/ct x. good fm. BS controlled. 04/27/24 -?-?-?-?-?-?-?-?-?-?-?-?- 36w 3d 198 lb 6 oz 133/86 Nega tive -?-?-?-?-?-?-?-?-?-?-?-?- Negative 140 35 1 -?-?-?-?-?-?-?-?-?-?-?-?- SM- no vb lof go od fm no regular ctx gbs collected. ROS Constitutional Constitutional: Reports systems reviewed and no addt'l complaints, except as documented Gastrointestinal Gastrointestinal: Denies bloating, constipation, cramping, diarrhea, nausea or vomiting Genitourinary Genitourinary: Reports other Details: Denies vaginal odor, vaginal bleeding, or vaginal discharge ; Denies difficulty urinating or flank pain Physical Exam HEENT normocephalic Resp normal respiratory effort and normal air movement no CVA tenderness Extremity normal to inspection General Extremity: edema bilateral (trace ) NST FHR Rate Baby A Baseline: 140 Variability:: Moderate Accelerations:: 15 x 15 Decelerations:: None NST Reactive:: Yes FHR Category:: Category I Uterine Activity:: contractions q 3-5 min Assessment & Plan (1) Supervision of high risk in first trimester: COMMENT: PRR ESAU 10/01/23 boy helio Iyer : Satinder (2) History of gestational diabetes in prior , currently : COMMENT: HgbA1c ordered with NOB (3) History of oligohydramnios: COMMENT: growth US at 36 weeks and weekly fluid check there after (4) History of miscarriage, currently : COMMENT: APL negative (5) Abnormal glucose affecting : COMMENT: 3 hr. GTT needed (6) COVID-19 vaccine administered: COMMENT: full vaccinated, given beginning of . (7) Decreased movement: (8) Decreased movements in third trimester: COMMENT: reactive nst triage 01/20 (9) Endometritis: COMMENT: recommend waiting 3 months prior to next . neg apl testing, discussed home bs testing (10) Genetic testing of female: COMMENT: low reproductive risk 283 genes (11) Gestational diabetes, diet controlled: QUALIFIERS: Trimester: third trimester Qualified Code(s): O24.410 - Gestational diabetes mellitus in , diet controlled COMMENT: endocrine and nutrition consult. growth us at 36 nl,and deliver by 39- 40. IOL set up for 03/06 7am (12) Lupus anticoagulant positive: COMMENT: repeat APL panel in 3 months (13) Missed : (14) Need for Tdap vaccination: PLAN: Plan bpp is 10/10 with fluid level of 10. ok to dc to home cx is 10/-4 Charges/Coding Multi Select Codes Visit Charges Office Visit/Consults: 53812 OV L3 Est 20min Urinary/Genital Urinary/Genital CPT Codes: 52651-58 non-stress test Interp
--- NOTE | 2024-05-01 21:11 | OB.TRI.NOTE ---
HPI - General HPI Narrative NINOSKA CERVANTES, is a 28 y/o @ 37 weeks who presents to L&D for decreased movement. The tracing was a cat 1 with accelerations however there was one small variability initially when the baby was put on the monitor and a bpp was ordered. Maternal Data Information ESAU Calculator Estimated Delivery Date Method Current WG Current Estimate 05/22/24 Ultrasound #1 37w 0d Other Estimates 05/20/24 LMP (Uncertain) 37w 2d PFSH PFSH Medical History (Updated 04/29/24 @ 16:10 by Laureen Gao CNM) Endometritis Missed History of recurrent miscarriages Incomplete Genetic testing of female History of recurrent miscarriages Supervision of high risk , antepartum Vaginal delivery Oligohydramnios Gestational diabetes, diet controlled Abnormal glucose affecting Home Medications ?Medication ?Instructions ?Recorded ?Last Taken ?Type vitamin#30 30 mg iron-10 1 cap PO 08/29/22 04/30/24 History mg iron-folic acid 1 mg-omg3 capsule Allergy/AdvReac Type Severity Reaction Status Date / Time No Known Allergies Allergy Verified 05/01/24 20:46 Family History Father Hypertension Surgical History History of dilation and curettage History of surgery History of appendectomy Social History adopted: No household members: spouse and children housing: house number of children: 1 current occupational status: employed 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 occupational exposures/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: No pets and animals: Yes pets and animals: dog(s) history of recent travel: No sexually active: Yes Smoking Status: Never smoker alcohol intake: never substance use type: does not use well-balanced diet: daily or most days caffeine: Yes Type: coffee Number of servings: 1 eating out: 1-3 times/week during the past year weight has: remained stable what type of physical activity do you participate in: none karlie/catholic: None seatbelt use: always do you feel safe at home: Yes additional social history: Spouse- Satinder 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 Date Name GA/Weeks Outcome Route Bth Weight Infant Gen Labor Lgth Anesthesia Del Locatn Provider FOB 03/02/21 Jaylon 38 live - full term Male [facility] Dr. Munoz Delivery Date: 03/02/21 Last Updated by: Almaz Franco IOL Olio [id number] decreased FM Visit Details Expected Delivery Route/Plan Labor Preferences- CB/BF classes: [] labor support person: [] labor intervention preferences: [] pain management options preferred: [] cut cord/dad catch: [] : [] PP control planned: [] discussed possible routes of delivery and associated risks: [] special requests: [] Plans Covid status: [] Flu vaccine: given Tdap vaccine: given Rhogam: na LARC form signed: declined movement and labor precautions reviewed. Problem list reviewed and updated with the most current plan of care details and appropriate orders placed. Relevant counseling for the gestational age provided. Continue routine care and follow up unless otherwise noted in visit notes/problem list details OB Flowsheet Initial Weight: Not Recorded Date <del>?</del> EGA Weight BP Urine Prot <del>?</del> Glucose FHR FuHt Pres Dilation <del>?</del> Effaced St Visit Note 10/22/23 <del>?</del> 9w 4d 199 lb 4 oz 118/83 <del>?</del> 185 <del>?</del> SM- CRL 2.5 cm cons with LMP 10/27/23 <del>?</del> 10w 2d 198 lb 6 oz 142/84 Negative <del>?</del> Negative 185 <del>?</del> JV- pt being seen for vaginal bleeding today. on exam there is brown/ pink discharge. ultrasound is reassuring. RTO in one week. 11/03/23 <del>?</del> 11w 2d 197 lb 127/87 <del>?</del> 180 <del>?</del> SM- no vb labs drawn today 11/06/23 <del>?</del> 11w 5d 198 lb 143/88 129/84 Negative <del>?</del> Negative 160 <del>?</del> kw- work in for spotting. FHT and movement on US. 11/17/23 <del>?</del> 13w 2d 197 lb 137/87 Negative <del>?</del> Negative 170 <del>?</del> SM- no vb lof crmaping low risk nipt 12/03/23 <del>?</del> 15w 4d 197 lb 4 oz 124/76 Negative <del>?</del> Negative 150 <del>?</del> JV- no lof, vaginal bleeding, or cramping. has anatomy scan scheduled. having another boy 12/21/23 <del>?</del> 18w 1d 199 lb 6 oz 131/78 Negative <del>?</del> Negative 150 <del>?</del> KW- work in for heart tones and patient anxiety. FHT and movement noted on US today. reassurance given. 12/31/23 <del>?</del> 19w 4d 197 lb 138/90 Negative <del>?</del> Negative 150 20 <del>?</del> SM- no vb lof good fm no regular ctx 01/27/24 <del>?</del> 23w 3d 199 lb 4 oz 116/72 Negative <del>?</del> Negative 147 <del>?</del> JV- no lof, vagainal bleeding, or cramping. plans to do 3 hr gtt instead of 1 hr. 02/16/24 <del>?</del> 26w 2d 201 lb 6 oz 124/75 Negative <del>?</del> Negative 150 27 <del>?</del> SM- no vb lof good fm no reuglar ctx 03/02/24 <del>?</del> 28w 3d 202 lb 122/86 Negative <del>?</del> Negative 139 30 <del>?</del> JV- no lof, vaginal bleeding, or dec fm. consult to nutrition sent. JV- no lof, vaginal bleeding, or dec fm. consult to nutrition sent. last 2 fasting was 99, 98. and after meals are in the low 100's. tdap today. going to [place]. 03/14/24 <del>?</del> 30w 1d 200 lb 132/84 Trace <del>?</del> Negative 130 <del>?</del> SM- no vb lof good fm no regular ctx 03/25/24 <del>?</del> 31w 5d 199 lb 8 oz 128/83 Negative <del>?</del> Negative 140 31 <del>?</del> SM- SM- no vb lof good fm no reular ctx co swelling BS controlled 04/11/24 <del>?</del> 34w 1d 202 lb 6 oz 124/78 Negative <del>?</del> Negative 145 34 <del>?</del> KW- no vb/lof/ctx. good fm. BS controlled. 04/27/24 <del>?</del> 36w 3d 198 lb 6 oz 133/86 Negative <del>?</del> Negative 140 35 1 <del>?</del> SM- no vb lof good fm no regular ctx gbs collected. ROS Constitutional Constitutional: Reports systems reviewed and no addt'l complaints, except as documented Gastrointestinal Gastrointestinal: Denies bloating, constipation, cramping, diarrhea, nausea or vomiting Genitourinary Genitourinary: Reports other Details: Denies vaginal odor, vaginal bleeding, or vaginal discharge ; Denies difficulty urinating or flank pain Physical Exam HEENT normocephalic Resp normal respiratory effort and normal air movement no CVA tenderness Extremity normal to inspection General Extremity: edema bilateral (trace ) NST FHR Rate Baby A Baseline: 140 Variability:: Moderate Accelerations:: 15 x 15 Decelerations:: None NST Reactive:: Yes FHR Category:: Category I Uterine Activity:: contractions q 3-5 min Assessment & Plan (1) Supervision of high risk in first trimester: COMMENT: PRR ESAU 10/01/23 boy helio MIESHA Iyer : Satinder (2) History of gestational diabetes in prior , currently : COMMENT: HgbA1c ordered with NOB (3) History of oligohydramnios: COMMENT: growth US at 36 weeks and weekly fluid check there after (4) History of miscarriage, currently : COMMENT: APL negative (5) Abnormal glucose affecting : COMMENT: 3 hr. GTT needed (6) COVID-19 vaccine administered: COMMENT: full vaccinated, given beginning of . (7) Decreased movement: (8) Decreased movements in third trimester: COMMENT: reactive nst triage 01/20 (9) Endometritis: COMMENT: recommend waiting 3 months prior to next . neg apl testing, discussed home bs testing (10) Genetic testing of female: COMMENT: low reproductive risk 283 genes (11) Gestational diabetes, diet controlled: QUALIFIERS: Trimester: third trimester Qualified Code(s): O24.410 - Gestational diabetes mellitus in , diet controlled COMMENT: endocrine and nutrition consult. growth us at 36 nl,and deliver by 39- 40. IOL set up for 03/06 7am (12) Lupus anticoagulant positive: COMMENT: repeat APL panel in 3 months (13) Missed : (14) Need for Tdap vaccination: PLAN: Plan bpp is 10/10 with fluid level of 10. ok to dc to home cx is 1/0/-4 Charges/Coding Multi Select Codes Visit Charges Office Visit/Consults: 78266 OV L3 Est 20min Urinary/Genital Urinary/Genital CPT Codes: 55024-61 non-stress test Interp
== END 2024-05-01 21:22 | disposition home or self-care (01) ==
LOC: WPOUT 18:22 → WP 18:24
PROVIDERS: Referring Provider Obstetrics & Gynecology; Visit Provider Obstetrics & Gynecology
DX: O36.8130 Decreased fetal movements, third trimester, not applicable or unspecified (principal); Z3A.37 37 weeks gestation of pregnancy; O24.410 Gestational diabetes mellitus in pregnancy, diet controlled
CPT/HCPCS: 59025; 59050; 76819; 99221; G0378

== ENCOUNTER 2024-05-11 07:38 | Inpatient (IN) | payer OTHER, SELFPAY ==
[2024-05-11] VITALS (26 sets, daily range): BP systolic 112–163; BP diastolic 69–102; PULSE 83–106; RESP 14–16; TEMP 37.2–37.6; O2SAT 97–100; BMI 35.1
[2024-05-11 08:21] LABS: Absolute Lymphocyte Count 2.69 X10^3/uL (0.83-4.51); Absolute Neutrophil Count 9.5 X10^3/uL (2.0-7.7); Basophil# 0.04 X10^3/uL; Basophil% 0.3 % (0-1); Eosinophil# 0.05 X10^3/uL; Eosinophils% 0.4 % (0-5); Hematocrit 38.3 % (37-47); Hemoglobin 13.3 g/dL (12.0-15.0); Lymphocyte # 2.69 X10^3/ul (0.83-4.51); Lymphocyte % 20.5 % (19-41); Mean Corp Hgb Conc 34.7 g/dL (32-36); Mean Corpuscular Hgb 29.2 pg (27.0-32.0); Mean Corpuscular Volume 84.2 fL (81-99); Mean Platelet Vol. 11.2 fl (6.2-12.0); Monocyte# 0.73 X10^3/uL; Monocyte% 5.6 % (0-10); NRBC Flagged by Analyzer 0 % (0-5); Neutrophil # 9.51 X10^3/uL (2.7-7.7); Neutrophil % 72.2 % (47-70); Platelet Count 201 K/mm3 (150-450); RBC Distribution Width CV 13.5 % (11.6-14.6); RBC Distribution Width SD 41.3 fl (35.1-43.9); Red Blood Count 4.55 M/mm3 (4.2-5.4); White Blood Count 13.2 K/mm3 (4.4-11.0)
[2024-05-11] MEDS: Lactated Ringers 1,000 ML 50 ML IV ×2 (08:22→11:49)
[2024-05-11] MEDS: LACTATED RINGERS 500 ML 999 ML IV (08:23)
[2024-05-11 08:43] LABS: Bedside Glucose 91 mg/dL (74-106)
[2024-05-11] MEDS: fentaNYL-bupivacaine (epidural) 100 ML BAG EPIDURAL (09:03)
[2024-05-11 09:06] LABS: Syphilis Antibodies Non-reactive
[2024-05-11] MEDS: Oxytocin 10 UNITS/ML Vial IM (12:40)
[2024-05-11] MEDS: Oxytocin 15 Units/NS 250ml 15 UNITS/250 ML IV.SOLN 83 UNITS IV (12:45)
--- NOTE | 2024-05-11 13:13 | HP.PCM.OB_ITS ---
HPI - General General Date of Admission: 05/11/24 HPI Narrative NINOSKA CERVANTES, is a 28 F who presents for active labor regular ctx no vb lof admits good fm Maternal Data Information ESAU Calculator Estimated Delivery Date Method Current WG Current Estimate 05/22/24 Ultrasound #1 38w 3d Other Estimates 05/20/24 LMP (Uncertain) 38w 5d PFSH PFSH Medical History (Updated 05/11/24 @ 13:[address] Araceli Munoz MD) Gestational diabetes Genetic testing of female History of recurrent miscarriages History of recurrent miscarriages Endometritis Incomplete Missed Supervision of high risk , antepartum Vaginal delivery Oligohydramnios Gestational diabetes, diet controlled Abnormal glucose affecting Medical History no medical history Home Medications ?Medication ?Instructions ?Recorded ?Last Taken ?Type vitamin#30 30 mg iron-10 1 cap PO 08/29/22 History mg iron-folic acid 1 mg-omg3 capsule Allergy/AdvReac Type Severity Reaction Status Date / Time No Known Allergies Allergy Verified 05/04/24 10:31 Family History Father Hypertension Surgical History History of dilation and curettage History of surgery History of appendectomy Social History adopted: No household members: spouse and children housing: house number of children: 1 current occupational status: employed 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 current occupational exposures/hazards: No pets and animals: Yes pets and animals: dog(s) history of recent travel: No sexually active: Yes Smoking Status: Never smoker alcohol intake: never substance use type: does not use well-balanced diet: daily or most days caffeine: Yes Type: coffee Number of servings: 1 eating out: 1-3 times/week during the past year weight has: remained stable what type of physical activity do you participate in: none karlie/jain: None seatbelt use: always do you feel safe at home: Yes additional social history: Spouse- Satinder 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 Date Name GA/Weeks Outcome Route Bth Weight Gen Labor Lgth Anesthesia Del Guillermoatjc Provider FOB 03/02/21 Jaylon 38 live - full term Male [facility] Dr. Munoz Delivery Date: 03/02/21 Last Updated by: Almaz Nortonion IOL Olio GDMA1 decreased FM Visit Details Expected Delivery Route/Plan Labor Preferences- CB/BF classes: [] labor support person: [] labor intervention preferences: [] pain management options preferred: [] cut cord/dad catch: [] : [] PP control planned: [] discussed possible routes of delivery and associated risks: [] special requests: [] Plans Covid status: [] Flu vaccine: given Tdap vaccine: given Rhogam: na LARC form signed: declined movement and labor precautions reviewed. Problem list reviewed and updated with the most current plan of care details and appropriate orders placed. Relevant counseling for the gestational age provided. Continue routine care and follow up unless otherwise noted in visit notes/problem list details OB Flowsheet Initial Weight: Not Recorded Date -?-?-?-?-?-?-?-?-?-?-?-?- EGA Weight BP Urine Prot -?-?-?-?-?-?-?-?-?-?-?-?- Glucose FHR FuHt Pres Dilation -?-?-?-?-?-?-?-?-?-?-?-?- Effaced St Visit Note 10/22/23 -?-?-?-?-?-?-?-?-?-?-?-?- 9w 4d 199 lb 4 oz 118/83 -?-?-?-?-?-?-?-?-?-?-?-?- 185 -?-?-?-?-?-?-?-?-?-?-?-?- SM- CRL 2.5 cm c ons with LMP 10/27/23 -?-?-?-?-?-?-?-?-?-?-?-?- 10w 2d 198 lb 6 oz 142/84 Nega tive -?-?-?-?-?-?-?-?-?-?-?-?- Negative 185 -?-?-?-?-?-?-?-?-?-?-?-?- JV- pt being see n for vaginal bleeding today. on exam there is brown/ pink discharge. ultrasound is reassuring. RTO in one week. 11/03/23 -?-?-?-?-?-?-?-?-?-?-?-?- 11w 2d 197 lb 127/87 -?-?-?-?-?-?-?-?-?-?-?-?- 180 -?-?-?-?-?-?-?-?-?-?-?-?- SM- no vb labs d rawn today 11/06/23 -?-?-?-?-?-?-?-?-?-?-?-?- 11w 5d 198 lb 143/88 129/84 Negative -?-?-?-?-?-?-?-?-?-?-?-?- Negative 160 -?-?-?-?-?-?-?-?-?-?-?-?- kw- work in for spotting. FHT and movement on US. 11/17/23 -?-?-?-?-?-?-?-?-?-?-?-?- 13w 2d 197 lb 137/87 Negative -?-?-?-?-?-?-?-?-?-?-?-?- Negative 170 -?-?-?-?-?-?-?-?-?-?-?-?- SM- no vb lof cr maping low risk nipt 12/03/23 -?-?-?-?-?-?-?-?-?-?-?-?- 15w 4d 197 lb 4 oz 124/76 Nega tive -?-?-?-?-?-?-?-?-?-?-?-?- Negative 150 -?-?-?-?-?-?-?-?-?-?-?-?- JV- no lof, vagi nal bleeding, or cramping. has anatomy scan scheduled. having another boy 12/21/23 -?-?-?-?-?-?-?-?-?-?-?-?- 18w 1d 199 lb 6 oz 131/78 Nega tive -?-?-?-?-?-?-?-?-?-?-?-?- Negative 150 -?-?-?-?-?-?-?-?-?-?-?-?- KW- work in for heart tones and patient anxiety. FHT and movement noted on US today. reassurance given. 12/31/23 -?-?-?-?-?-?-?-?-?-?-?-?- 19w 4d 197 lb 138/90 Negative -?-?-?-?-?-?-?-?-?-?-?-?- Negative 150 20 -?-?-?-?-?-?-?-?-?-?-?-?- SM- no vb lof go od fm no regular ctx 01/27/24 -?-?-?-?-?-?-?-?-?-?-?-?- 23w 3d 199 lb 4 oz 116/72 Nega tive -?-?-?-?-?-?-?-?-?-?-?-?- Negative 147 -?-?-?-?-?-?-?-?-?-?-?-?- JV- no lof, vaga inal bleeding, or cramping. plans to do 3 hr gtt instead of 1 hr. 02/16/24 -?-?-?-?-?-?-?-?-?-?-?-?- 26w 2d 201 lb 6 oz 124/75 Nega tive -?-?-?-?-?-?-?-?-?-?-?-?- Negative 150 27 -?-?-?-?-?-?-?-?-?-?-?-?- SM- no vb lof go od fm no reuglar ctx 03/02/24 -?-?-?-?-?-?-?-?-?-?-?-?- 28w 3d 202 lb 122/86 Negative -?-?-?-?-?-?-?-?-?-?-?-?- Negative 139 30 -?-?-?-?-?-?-?-?-?-?-?-?- JV- no lof, vagi nal bleeding, or dec fm. consult to nutrition sent. JV- no lof, vaginal bleeding , or dec fm. consult to nutrition sent. last 2 fasting was 99, 98. and after meals are in the low 100's. tdap today. going to or for a week. 03/14/24 -?-?-?-?-?-?-?-?-?-?-?-?- 30w 1d 200 lb 132/84 Trace -?-?-?-?-?-?-?-?-?-?-?-?- Negative 130 -?-?-?-?-?-?-?-?-?-?-?-?- SM- no vb lof go od fm no regular ctx 03/25/24 -?-?-?-?-?-?-?-?-?-?-?-?- 31w 5d 199 lb 8 oz 128/83 Nega tive -?-?-?-?-?-?-?-?-?-?-?-?- Negative 140 31 -?-?-?-?-?-?-?-?-?-?-?-?- SM- SM- no vb lof good fm no reu lar ctx co swelling BS controlled 04/11/24 -?-?-?-?-?-?-?-?-?-?-?-?- 34w 1d 202 lb 6 oz 124/78 Nega tive -?-?-?-?-?-?-?-?-?-?-?-?- Negative 145 34 -?-?-?-?-?-?-?-?-?-?-?-?- KW- no vb/lof/ct x. good fm. BS controlled. 04/27/24 -?-?-?-?-?-?-?-?-?-?-?-?- 36w 3d 198 lb 6 oz 133/86 Nega tive -?-?-?-?-?-?-?-?-?-?-?-?- Negative 140 35 1 -?-?-?-?-?-?-?-?-?-?-?-?- SM- no vb lof go od fm no regular ctx gbs collected. 05/04/24 -?-?-?-?-?-?-?-?-?-?-?-?- 37w 3d 198 lb 8 oz 136/88 Nega tive -?-?-?-?-?-?-?-?-?-?-?-?- Negative 130 33 Cephalic 2 -?-?-?-?-?-?-?-?-?-?-?-?- 40 -3 Sm- no vb lof good fm no reugla ctx Sm- no vb lof good fm no reu gla ctx FH dropped, bedside RENNY 9.6 NST FHR Rate Baby A Baseline: 140 Variability:: Moderate Accelerations:: 15 x 15 Decelerations:: None NST Reactive:: Yes FHR Category:: Category I Uterine Activity:: q3-5 ROS Constitutional Constitutional: Reports systems reviewed and no addt'l complaints, except as documented ENT HEENT: Reports systems reviewed and no addt'l complaints, except as documented Cardiovascular Cardiovascular: Reports systems reviewed and no addt'l complaints, except as documented Respiratory/Chest Respiratory/Chest: Reports systems reviewed and no addt'l complaints, except as documented Gastrointestinal Gastrointestinal: Reports systems reviewed and no addt'l complaints, except as documented and nausea; Denies abdominal pain Genitourinary Genitourinary: Reports systems reviewed and no addt'l complaints, except as documented, contractions Details: present and frequency (regular ) and movement Details: present Musculoskeletal Musculoskeletal: Reports systems reviewed and no addt'l complaints, except as documented Integumentary Integumentary: Reports as per HPI Neurologic Neurologic: Reports systems reviewed and no addt'l complaints, except as documented Endocrine Endocrinology: Reports systems reviewed and no addt'l complaints, except as documented Vital Signs Vital Signs Vital Signs: 05/11/24 07:22 05/11/24 07:22 05/11/24 08:34 Temperature Temperature Source Pulse Rate 98 Respiratory Rate Blood Pressure 163/87 H 144/102 H BP Systolic 163 144 BP Diastolic 87 102 Pulse Ox 05/11/24 08:34 05/11/24 08:34 05/11/24 08:39 Temperature Temperature Source Pulse Rate 85 Respiratory Rate Blood Pressure 144/85 H BP Systolic 144 BP Diastolic 85 Pulse Ox 99 05/11/24 08:39 05/11/24 08:39 05/11/24 08:39 Temperature Temperature Source Pulse Rate 90 83 Respiratory Rate Blood Pressure BP Systolic BP Diastolic Pulse Ox 100 05/11/24 08:44 05/11/24 08:44 05/11/24 08:44 Temperature Temperature Source Pulse Rate 88 92 Respiratory Rate Blood Pressure 148/83 H BP Systolic 148 BP Diastolic 83 Pulse Ox 05/11/24 08:44 05/11/24 08:49 05/11/24 08:49 Temperature Temperature Source Pulse Rate 96 Respiratory Rate Blood Pressure 142/83 H BP Systolic 142 BP Diastolic 83 Pulse Ox 100 05/11/24 08:54 05/11/24 08:54 05/11/24 08:54 Temperature Temperature Source Temporal Pulse Rate 100 Respiratory Rate Blood Pressure 144/91 H BP Systolic 144 BP Diastolic 91 Pulse Ox 05/11/24 08:54 05/11/24 08:54 05/11/24 08:59 Temperature 98.9 F Temperature Source Pulse Rate Respiratory Rate 16 Blood Pressure 135/86 H BP Systolic 135 BP Diastolic 86 Pulse Ox 05/11/24 08:59 05/11/24 09:04 05/11/24 09:04 Temperature Temperature Source Pulse Rate 92 96 Respiratory Rate Blood Pressure 140/89 H BP Systolic 140 BP Diastolic 89 Pulse Ox 05/11/24 09:09 05/11/24 09:09 05/11/24 09:14 Temperature Temperature Source Pulse Rate 87 Respiratory Rate Blood Pressure 120/69 129/76 H BP Systolic 120 129 BP Diastolic 69 76 Pulse Ox 05/11/24 09:14 05/11/24 09:44 05/11/24 09:44 Temperature Temperature Source Pulse Rate 90 90 Respiratory Rate Blood Pressure 118/72 BP Systolic 118 BP Diastolic 72 Pulse Ox 05/11/24 10:14 05/11/24 10:14 05/11/24 11:21 Temperature Temperature Source Pulse Rate 90 Respiratory Rate Blood Pressure 122/71 H 142/94 H BP Systolic 122 142 BP Diastolic 71 94 Pulse Ox 05/11/24 11:21 05/11/24 12:46 05/11/24 12:46 Temperature Temperature Source Pulse Rate 90 97 Respiratory Rate Blood Pressure 129/79 H BP Systolic 129 BP Diastolic 79 Pulse Ox 05/11/24 13:00 05/11/24 13:00 Temperature Temperature Source Pulse Rate 101 H Respiratory Rate Blood Pressure 132/81 H BP Systolic 132 BP Diastolic 81 Pulse Ox Weight Weight: 198 lb 6 oz Body Mass Index (BMI) 35.1 Physical Exam Const alert, oriented x3 and healthy appearing Constitutional Narrative: uncomfortable with contractions HEENT normocephalic and moist oral mucous membranes Head and Scalp: atraumatic Neck full ROM, no lymphadenopathy, supple and thyroid normal General: trachea midline Thyroid: thyroid normal Lymph Lymphatic: no lymphadenopathy noted Chest inspection of chest normal Resp normal respiratory effort Cardio regular rate GI soft to palpation and non-tender GI Narrative: gravid Inspection: gravid external exam normal Bimanual Exam - Vag & Uterus: uterus non-tender Manual OB Exam: estimated gestational size appropriate, presentation cephalic, dilated, effaced and station Extremity normal to inspection General Extremity: Negative for edema Skin no rashes or lesions noted Neuro deep tendon reflexes 2+ bilaterally Motor Exam: strength 5/5 throughout and clonus absent Psych mental status grossly normal Labs Labs Labs: Blood Type B POSITIVE Antibody Screen NEGATIVE Hct 38.3 % (37-47) Hgb 13.3 g/dL (12.0-15.0) Obstetrics Ultrasound Syphilis Total Ab Non-reactive Rubella IgG Antibody Reactive (Nonreactive) Hep Bs Antigen Non-Reactive (Nonreactive) Hepatitis C Antibody Non-Reactive (Nonreactive) Chlamydia DNA (MELVIN) Negative (Negative) N.gonorrhoeae DNA (MELVIN) Negative (Negative) HIV 1&2 Antibody Non-Reactive (Nonreactive) Glucose 1 Hr 50 gm 154 mg/dL (70-140) H Gest Glucose Tolerance MG/DL Rhogam given: No Assessment & Plan (1) : QUALIFIERS: Weeks of gestation: 37 weeks Qualified Code(s): Z3A.37 - 37 weeks gestation of COMMENT: GBS neg, lr nipt. carrier done in past. Panorama low risk. Gender given to patients mom., nl anatomy (2) History of miscarriage, currently : COMMENT: APL negative (3) History of oligohydramnios: COMMENT: growth US at 36 weeks and weekly fluid check there after (4) History of gestational diabetes in prior , currently : COMMENT: HgbA1c ordered with NOB (5) Supervision of high risk in first trimester: COMMENT: PRR ESAU 10/01/23 boy helio Iyer : Satinder (6) Obesity affecting : COMMENT: BMI 34, nl hga1c, encouraged healthy weight gain (7) Gestational diabetes mellitus, currently : COMMENT: diet controlled, growth US 36 weeks, IOL setup at 39 with Sm (8) Active labor at term: PLAN: Plan admit IAL
--- NOTE | 2024-05-11 13:15 | OB.VAGDELI_ITS ---
Assessment & Plan (1) Active labor at term: (2) RENNY (amniotic fluid index) borderline low: COMMENT: repeat RENNY in 1 week, h/o oligo with preivous (3) Gestational diabetes mellitus, currently : COMMENT: diet controlled, growth US 36 weeks, IOL setup at 39 with Sm (4) Obesity affecting : COMMENT: BMI 34, nl hga1c, encouraged healthy weight gain (5) Supervision of high risk in first trimester: COMMENT: PRR ESAU 10/01/23 amos Iyer : Satinder (6) History of gestational diabetes in prior , currently : COMMENT: HgbA1c ordered with NOB (7) History of oligohydramnios: COMMENT: growth US at 36 weeks and weekly fluid check there after (8) History of miscarriage, currently : COMMENT: APL negative (9) : QUALIFIERS: Weeks of gestation: 37 weeks Qualified Code(s): Z3A.37 - 37 weeks gestation of COMMENT: GBS neg, lr nipt. carrier done in past. Panorama low risk. Gender given to patients mom., nl anatomy (10) Vaginal delivery: COMMENT: IAL 38 GDM amos Verma Maternal Data Information ESAU Calculator Estimated Delivery Date Method Current WG Current Estimate 05/22/24 Ultrasound #1 38w 3d Other Estimates 05/20/24 LMP (Uncertain) 38w 5d Vaginal Delivery Maternal Presentation Maternal Presentation: see assessment and plan Vaginal Delivery Information Procedure Performed: Spontaneous Vaginal Delivery Surgeon/Practitioner: Araceli Munoz Pre-Procedure Diagnosis: see assessment and plan Post-Procedure Diagnosis: same Type of anesthesia: Epidural Findings Description of procedure: Patient began pushing and delivered the head in the HENRY presentation. The head was delivered atraumatically and a loose nuchal cord ?1 was identified and easily reduced over the infant's head. The anterior and posterior shoulders delivered without complication followed by the rest of the infant and the was placed on the maternal abdomen. Delayed cord clamping was employed for approximately 60 seconds. Cord was clamped and cut and gentle traction was applied to the cord and the placenta delivered spontaneously immediately following it was noted to be intact with three-vessel cord. The perineum and vagina were inspected and noted to have no laceration. EBL was 100 cc. Patient and infant tolerated delivery well. Presentation: Vertex Placental Delivery Description: Spontaneous Specimen collected: Yes Description of specimen(s) removed: placenta Books Binder telecommunications officer: No Post Vaginal Deli Medications given after delivery: Other (pitocin) Complication Complications: No Multi Select Codes Urinary/Genital Urinary/Genital CPT Codes: 79693 Vaginal Delivery [facility]
--- NOTE | 2024-05-11 13:16 | DCINST_ITS ---
Discharge Instructions Diet Discharge Diet: No restrictions DC O2, CPAP, BIPAP needs Home O2 Discharge instructions: No Dressing / Incision Discharge Activity: Return to Normal Activity, May Not Drive (while taking narcotic pain medications.) and May Shower May resume sexual activity in: 4-6 weeks Weight Bearing Status: Full weight bearing Dressing / Incision Call your doctor if your incision/area has: Continuous Slow Oozing, Sudden Increased Bleeding, Increased Pain/ Swelling, Increased Redness and Foul Smelling Discharge Call your doctor if you observe: Fever of 101 or Higher, Using more than 1 pad per hour, Shortness of breath, Chest pain and Uncontrolled pain Suture Line Care: Avoid Pulling/Pushing and Avoid Pinching/Bending Remove Dressing in: 1 week (if present) Cleanse incision/area with: Soap & Water and Keep Dressing Clean & Dry Follow Up Care Please Follow Up With: Araceli Munoz MD When: Call [phone] to make an appointment with your doctor in 6 weeks. If you had elevated blood pressure or 4th degree laceration, you will need to be seen in 2 weeks. Test Results: Test results from this visit will be discussed in further detail at your follow- up appointment, if applicable. Discharge Plan Admission Admit Date/Time: 05/11/24 07:38 Attending Provider: Araceli Munoz Primary Care Provider: Dorothea San Discharge Orders/Prescriptions Prescriptions: No Action PNV #[id number] 30 mg iron-10 mg iron-1 mg capsule 1 cap PO Referrals / Follow Up: Dorothea San, [Primary Care Provider] -
[2024-05-11 14:43] LABS: Bedside Glucose 86 mg/dL (74-106)
[2024-05-11] MEDS: Acetaminophen 500 MG Tablet 1000 MG PO (16:06)
[2024-05-11] MEDS: Naproxen 500 MG Tablet PO (19:54)
[2024-05-12] VITALS (8 sets, daily range): BP systolic 118–144; BP diastolic 72–85; PULSE 78–92; RESP 16; TEMP 36.6–36.9; O2SAT 97–99
[2024-05-12] MEDS: Acetaminophen 500 MG Tablet 1000 MG PO (02:12)
[2024-05-12 05:26] LABS: Bedside Glucose 82 mg/dL (74-106)
--- NOTE | 2024-05-12 11:07 | PCM.PN.OB ---
Subjective Subjective Patient doing well without complaints. Tolerating PO. Ambulating and voiding without difficulty. feeding well. Denies chest pain, shortness of breath, calf pain/swelling, fevers, chills, lightheadedness. Objective Data Objective Data Vital Signs: Vital Signs Temp Pulse Resp BP Pulse Ox O2 Del Method 98.4 F 88 16 126/77 H 99 Room Air 05/12/24 09:18 05/12/24 09:18 05/12/24 09:18 05/12/24 09:18 05/12/24 04:45 05/12/24 04:45 Oxygen Delivery Method Room Air Weight: 198 lb 6 oz Body Mass Index (BMI) 35.1 Intake & Output: Intake and Output for Last 24 Hours 05/10/24 05/11/24 05/12/24 23:59 23:59 23:59 Intake Total 932.21 / 932.21 Output Total 1100 / 1100 Balance -167.79 / -167.79 Lab / Micro Data 05/11/24 08:00 Labs: Laboratory Results - last 24 hr 05/11/24 14:08: POC Glucose 86 05/12/24 05:06: POC Glucose 82 ROS Constitutional Constitutional: Reports systems reviewed and no addt'l complaints, except as documented Cardiovascular Cardiovascular: Reports systems reviewed and no addt'l complaints, except as documented Respiratory/Chest Respiratory/Chest: Reports systems reviewed and no addt'l complaints, except as documented Gastrointestinal Gastrointestinal: Reports systems reviewed and no addt'l complaints, except as documented Physical Exam Const alert, oriented x3 and no apparent distress HEENT Head and Scalp: atraumatic Resp normal respiratory effort GI soft to palpation and non-tender Bimanual Exam - Vag & Uterus: uterus non-tender Uterus Palpation: uterus fundus firm (below Umbilicus) Assessment & Plan (1) Vaginal delivery: COMMENT: SM IAL 38 GDM boy Bayron PLAN: Plan s/p PPD # 1 1. routine post delivery care 2. breast feeding- support given 3. rh positive 4. rubella immune
--- NOTE | 2024-05-17 15:07 | NURSING ---
Here for visit, follow up phone calls asked. Patient state she is feeling well, denies any pain. States that her bleeding is minimal and denies any headaches, visual changes, or baby blues. Denies any questions or concerns at this time.
== END 2024-05-12 14:00 | disposition home or self-care (01) | DRG 807 ==
LOC: WPOUT 07:43 → WP 07:43
PROVIDERS: Admitting Provider Obstetrics & Gynecology; Referring Provider Registered Nurse; Visit Provider Obstetrics & Gynecology
DX: O24.410 Gestational diabetes mellitus in pregnancy, diet controlled (principal); Z37.0 Single live birth; E66.9 Obesity, unspecified; O69.81X0 Labor and delivery complicated by cord around neck, without compression, not applicable or unspecified; O99.214 Obesity complicating childbirth; Z3A.37 37 weeks gestation of pregnancy
CPT/HCPCS: 59025; 59050; 82962; 85025; 86780; 86850; 86900; 86901